=== PATIENT | female | born 1945 | race Caucasian/White ===

== ENCOUNTER 2019-02-14 17:32 | Inpatient (IN) | payer MEDICARE, OTHER ==
[2019-02-14] MEDS ORDERED: Adenosine 6 MG/2 ML SDV ONE (17:43)
[2019-02-14] MEDS ORDERED: Adenosine 12 MG/4 ML SDV ONE (17:43)
[2019-02-14] MEDS ORDERED: Sodium Chloride 0.9% 10 ML Syringe FLUSH PRN (17:48)
[2019-02-14] MEDS: Diltiazem 50 MG/10 ML SDV IVPUSH ONE ×2 (17:55→18:15)
[2019-02-14] MEDS ORDERED: Diltiazem 50 MG/10 ML SDV IVPUSH ONE (18:31)
--- NOTE | 2019-02-14 18:44 | EDM.PDOC ---
ED HPI GENERAL MEDICAL PROBLEM - General Chief Complaint: Cardiovascular Problem Stated Complaint: RACING HEART Time Seen by Provider: 02/14/19 17:42 Source of Information: Reports: Patient, RN Notes Reviewed - History of Present Illness INITIAL COMMENTS - FREE TEXT/NARRATIVE: 74 old lady comes in with palpitations, shortness of breath and dizziness. This all started about noon today, around 6 hours ago. She was feeling fine with no unusual symptoms this morning. She has no known history of heart or lung problems. She is on medication for hypertension, losartan, dosage unknown. Was on thyroid medication, dosage unknown, and also on fosomax. She continues to feel short of breath. Her chest does not feel heavy or tight. No abdominal pain nausea or vomiting. She has never had anything like this before. - Related Data Allergies Allergy/AdvReac Type Severity Reaction Status Date / Time penicillin Allergy Hives Verified 02/14/19 17:43 vancomycin Allergy Hives Verified 02/14/19 17:43 Past Medical History HEENT History: Reports: Other (See Below) Other HEENT History: [place], glasses Cardiovascular History: Reports: Hypertension Respiratory History: Reports: Asthma Gastrointestinal History: Reports: GERD Musculoskeletal History: Reports: Other (See Below) Other Musculoskeletal History: left ankle surgery Endocrine/Metabolic History: Reports: Hypothyroidism, Other (See Below) Other Endocrine/Metabolic History: borderline diabetic - Past Surgical History GI Surgical History: Reports: Appendectomy Social & Family History - Tobacco Use Smoking Status *Q: Never Smoker Second Hand Smoke Exposure: No - Caffeine Use Caffeine Use: Reports: Coffee - Recreational Drug Use Recreational Drug Use: No ED ROS GENERAL - Review of Systems Review Of Systems: See Below Constitutional: Denies: Fever, Chills, Diaphoresis HEENT: Reports: No Symptoms Respiratory: Reports: Shortness of Breath Cardiovascular: Denies: Chest Pain GI/Abdominal: Denies: Abdominal Pain, Nausea, Vomiting Musculoskeletal: Denies: Neck Pain, Shoulder Pain, Arm Pain, Back Pain Skin: Reports: No Symptoms Neurological: Reports: Dizziness (Mild) ED EXAM, GENERAL - Physical Exam Exam: See Below General Appearance: Alert, Mild Distress Eye Exam: Bilateral Eye: PERRL Throat/Mouth: Normal Inspection, Normal Oropharynx Head: Atraumatic. No: Facial Swelling Neck: Supple, Full Range of Motion Respiratory/Chest: No Respiratory Distress, Lungs Clear, Normal Breath Sounds Cardiovascular: Tachycardia, Irregularly Irregular GI/Abdominal: Soft, Non-Tender. No: Guarding Back Exam: No: CVA Tenderness (L), CVA Tenderness (R) Extremities: Normal Inspection, No Pedal Edema Neurological: Alert, Oriented, No Motor/Sensory Deficits Skin Exam: Warm, Dry, Normal Color EKG INTERPRETATION EKG Date: 02/14/19 Rhythm: A-Fib [place]: Normal QRS: Other (mild conduction delay) ST-T: Depressed (there is ST depressionV2-v6.) Course - Vital Signs Last Recorded V/S: Last Vital Signs Temp 96.8 F 02/14/19 17:40 Pulse 126 H 02/14/19 19:05 Resp 15 02/14/19 19:05 BP 134/118 H 02/14/19 19:05 Pulse Ox 98 02/14/19 19:05 - Orders/Labs/Meds Orders: Active Orders 24 hr Category Date Time Status EKG 12 Lead [EKG Documentation Completion] [RC] STAT Care 02/14/19 17:48 Active EKG Documentation Completion [RC] ASDIRECTED Care 02/14/19 19:45 Active Oxygen Therapy [RC] ASDIRECTED Care 02/14/19 17:48 Active Peripheral IV Care [RC] . DIRECTED Care 02/14/19 17:48 Active Chest 1V Frontal [CR] Stat Exams 02/14/19 17:48 Taken TSH [CHEM] Stat Lab 02/14/19 19:47 Ordered Diltiazem 125 mg Med 02/14/19 18:30 Active Sodium Chloride 0.9% [Normal Saline] 100 ml IV TITRATE Sodium Chloride 0.9% [Normal Saline] 1,000 ml Med 02/14/19 19:45 Active IV ASDIRECTED Sodium Chloride 0.9% [Saline Flush] Med 02/14/19 17:48 Active 10 ml FLUSH ASDIRECTED PRN Peripheral IV Insertion Adult [OM.PC] Stat Oth 02/14/19 17:48 Ordered EKG 12 Lead [EK] Stat Ther 02/14/19 19:44 Ordered Medication Orders Diltiazem HCl 125 mg/ Sodium (Chloride) 125 mls @ 5 mls/hr IV TITRATE SOPHY; Protocol Last Titration: 02/14/19 19:33 Dose: 10 mg/hr, 10 mls/hr Admin: 09/21/19 18:48 Dose: 5 mg/hr, 5 mls/hr Sodium Chloride (Normal Saline) 1,000 mls @ 150 mls/hr IV ASDIRECTED SOPHY Sodium Chloride (Saline Flush) 10 ml FLUSH ASDIRECTED PRN PRN Reason: Keep Vein Open Last Admin: 02/14/19 18:00 Dose: 10 ml Labs: Laboratory Tests 02/14/19 02/14/19 02/14/19 Range/Units 18:05 18:05 18:05 WBC 8.24 (3.98-10.04) K/mm3 RBC 4.87 (3.98-5.22) M/mm3 Hgb 14.5 (11.2-15.7) gm/dl Hct 42.8 (34.1-44.9) % MCV 87.9 (79.4-94.8) fl MCH 29.8 (25.6-32.2) pg MCHC 33.9 (32.2-35.5) g/dl RDW Std Deviation 42.2 (36.4-46.3) fL Plt Count 218 (182-369) K/mm3 MPV 10.8 (9.4-12.3) fl Neut % (Auto) 60.8 (34.0-71.1) % Lymph % (Auto) 25.2 (19.3-51.7) % [place] % (Auto) 9.8 (4.7-12.5) % Eos % (Auto) 3.5 (0.7-5.8) Baso % (Auto) 0.6 (0.1-1.2) % Neut # (Auto) 5.00 (1.56-6.13) K/mm3 Lymph # (Auto) 2.08 (1.18-3.74) K/mm3 [place] # (Auto) 0.81 H (0.24-0.36) K/mm3 Eos # (Auto) 0.29 (0.04-0.36) K/mm3 Baso # (Auto) 0.05 (0.01-0.08) K/mm3 PT 9.6 L (9.7-12.0) SECONDS INR < 0.93 Sodium 140 (136-145) mEq/L Potassium 3.5 (3.5-5.1) mEq/L Chloride 104 (98-107) mEq/L Carbon Dioxide 22 (21-32) mEq/L Anion Gap 17.5 H (5-15) BUN 10 (7-18) mg/dL Creatinine 0.7 (0.55-1.02) mg/dL Est Cr Clr Drug Dosing 50.65 mL/min Estimated GFR (MDRD) > 60 (>60) mL/min BUN/Creatinine Ratio 14.3 (14-18) Glucose 106 (83-115) mg/dL Calcium 9.7 (8.5-10.1) mg/dL Total Bilirubin 0.3 (0.2-1.0) mg/dL AST 30 (15-37) U/L ALT 41 (14-59) U/L Alkaline Phosphatase 235 H (46-116) U/L Troponin I < 0.017 (0.00-0.056) ng/mL NT-Pro-B Natriuret Pep (0-125) pg/mL Total Protein 7.9 (6.4-8.2) g/dl Albumin 3.7 (3.4-5.0) g/dl Globulin 4.2 gm/dL Albumin/Globulin Ratio 0.9 L (1-2) 02/14/19 Range/Units 18:05 WBC (3.98-10.04) K/mm3 RBC (3.98-5.22) M/mm3 Hgb (11.2-15.7) gm/dl Hct (34.1-44.9) % MCV (79.4-94.8) fl MCH (25.6-32.2) pg MCHC (32.2-35.5) g/dl RDW Std Deviation (36.4-46.3) fL Plt Count (182-369) K/mm3 MPV (9.4-12.3) fl Neut % (Auto) (34.0-71.1) % Lymph % (Auto) (19.3-51.7) % [place] % (Auto) (4.7-12.5) % Eos % (Auto) (0.7-5.8) Baso % (Auto) (0.1-1.2) % Neut # (Auto) (1.56-6.13) K/mm3 Lymph # (Auto) (1.18-3.74) K/mm3 [place] # (Auto) (0.24-0.36) K/mm3 Eos # (Auto) (0.04-0.36) K/mm3 Baso # (Auto) (0.01-0.08) K/mm3 PT (9.7-12.0) SECONDS INR Sodium (136-145) mEq/L Potassium (3.5-5.1) mEq/L Chloride (98-107) mEq/L Carbon Dioxide (21-32) mEq/L Anion Gap (5-15) BUN (7-18) mg/dL Creatinine (0.55-1.02) mg/dL Est Cr Clr Drug Dosing mL/min Estimated GFR (MDRD) (>60) mL/min BUN/Creatinine Ratio (14-18) Glucose (83-115) mg/dL Calcium (8.5-10.1) mg/dL Total Bilirubin (0.2-1.0) mg/dL AST (15-37) U/L ALT (14-59) U/L Alkaline Phosphatase (46-116) U/L Troponin I (0.00-0.056) ng/mL NT-Pro-B Natriuret Pep 247 H (0-125) pg/mL Total Protein (6.4-8.2) g/dl Albumin (3.4-5.0) g/dl Globulin gm/dL Albumin/Globulin Ratio (1-2) Meds: Medications Generic Name Dose Route Start Last Admin Trade Name Freq PRN Reason Stop Dose Admin Diltiazem HCl 125 mg/ Sodium 125 mls @ 5 mls/hr 02/14/19 18:30 02/14/19 19:33 Chloride IV 10 mg/hr TITRATE SOPHY 10 mls/hr Titration Protocol 5 MG/HR Sodium Chloride 1,000 mls @ 150 mls/hr 02/14/19 19:45 Normal Saline IV ASDIRECTED SOPHY Sodium Chloride 10 ml 02/14/19 17:48 02/14/19 18:00 Saline Flush FLUSH 10 ml ASDIRECTED PRN Administration Keep Vein Open Discontinued Medications Generic Name Dose Route Start Last Admin Trade Name Freq PRN Reason Stop Dose Admin Adenosine Confirm 02/14/19 17:43 02/14/19 17:59 Adenocard Administered 02/14/19 17:44 Not Given Dose 6 mg .ROUTE .STK-MED ONE Adenosine Confirm 02/14/19 17:43 02/14/19 17:59 Adenocard Administered 02/14/19 17:44 Not Given Dose 12 mg .ROUTE .STK-MED ONE Diltiazem HCl 20 mg 02/14/19 17:50 02/14/19 18:15 Cardizem IVPUSH 02/14/19 17:51 10 mg ONETIME ONE Administration Diltiazem HCl 10 mg 02/14/19 18:31 02/14/19 18:47 Cardizem IVPUSH 02/14/19 18:32 10 mg ONETIME ONE Administration Lactated Ringer's 1,000 mls @ 150 mls/hr 02/14/19 19:45 Ringers, Lactated IV ASDIRECTED SOPHY - Re-Assessments/Exams Free Text/Narrative Re-Assessment/Exam: 02/14/19 19:45 Patient was given diltiazem 10 mg IV bolus 3 and that did bring her rate down into the 130's and 140's. Diltiazem drip was started at 5 mg per hour. Her rate has been trending upward toward 150 diltiazam drip has been increased to 10 mg per hour. She does feel much better. She continues to have no chest pain. Troponin did come back normal. Abscess all relatively normal. Will be admitted to ICU for further evaluation treatment 02/14/19 19:47 TSH added to her lab work. Departure - Departure Time of Disposition: 19:40 Disposition: Admitted As Inpatient 66 Condition: Fair Clinical Impression: Atrial fibrillation with RVR Referrals: Kina Joshi, [employer] [Primary Care Provider] - Forms: ED Department Discharge ED Communication - Discussed Case With (1) Discussed Case With (1): Admitting Provider (Dr Crowe, decision to admit at about 19:40) - My Orders Last 24 Hours: My Active Orders 02/14/19 17:48 EKG 12 Lead [EKG Documentation Completion] [RC] STAT Oxygen Therapy [RC] ASDIRECTED Peripheral IV Care [RC] . DIRECTED Chest 1V Frontal [CR] Stat Sodium Chloride 0.9% [Saline Flush] 10 ml FLUSH ASDIRECTED PRN Peripheral IV Insertion Adult [OM.PC] Stat 02/14/19 18:30 Diltiazem 125 mg Sodium Chloride 0.9% [Normal Saline] 100 ml IV TITRATE 02/14/19 19:44 EKG 12 Lead [EK] Stat 02/14/19 19:45 EKG Documentation Completion [RC] ASDIRECTED Sodium Chloride 0.9% [Normal Saline] 1,000 ml IV ASDIRECTED 02/14/19 19:47 TSH [CHEM] Stat - Assessment/Plan Last 24 Hours: My Active Orders 02/14/19 17:48 EKG 12 Lead [EKG Documentation Completion] [RC] STAT Oxygen Therapy [RC] ASDIRECTED Peripheral IV Care [RC] . DIRECTED Chest 1V Frontal [CR] Stat Sodium Chloride 0.9% [Saline Flush] 10 ml FLUSH ASDIRECTED PRN Peripheral IV Insertion Adult [OM.PC] Stat 02/14/19 18:30 Diltiazem 125 mg Sodium Chloride 0.9% [Normal Saline] 100 ml IV TITRATE 02/14/19 19:44 EKG 12 Lead [EK] Stat 02/14/19 19:45 EKG Documentation Completion [RC] ASDIRECTED Sodium Chloride 0.9% [Normal Saline] 1,000 ml IV ASDIRECTED 02/14/19 19:47 TSH [CHEM] Stat
[2019-02-14] MEDS: Diltiazem 125 MG in Sodium Chloride 0.9% 100 ML IV SCH (18:48)
[2019-02-14] MEDS ORDERED: Lactated Ringers 1,000 ML IV SCH (19:45)
[2019-02-14] MEDS ORDERED: Promethazine 6.25 MG in Sodium Chloride 0.9% 50 ML IV PRN (20:42)
[2019-02-14] MEDS ORDERED: Ondansetron 4 MG/2 ML SDV IV PRN (20:42)
[2019-02-14] MEDS ORDERED: Polyethylene Glycol 3350 Powder 17 GM Packet PO PRN (20:42)
[2019-02-14] MEDS ORDERED: HYDROmorphone 0.5 MG/0.5 ML Syringe IVPUSH PRN (20:42)
[2019-02-14] MEDS ORDERED: Albuterol/Ipratropium 3.0-0.5 MG/3 ML Neb Soln NEB PRN (20:42)
[2019-02-14] MEDS ORDERED: Acetaminophen/HYDROcodone 325-5 MG Tab PO PRN (20:42)
[2019-02-14] MEDS ORDERED: Docusate Sodium 100 MG Cap PO PRN (20:42)
[2019-02-14] MEDS ORDERED: Bisacodyl 5 MG Tab PO PRN (20:42)
[2019-02-14] MEDS ORDERED: Acetaminophen 325 MG Tab PO PRN (20:42)
[2019-02-14] MEDS ORDERED: LORazepam 2 MG/ML SDV IV PRN (20:42)
[2019-02-14] MEDS ORDERED: hydrALAZINE 20 MG/ML SDV IVPUSH PRN (20:48)
[2019-02-14] MEDS: Sodium Chloride 0.9% 1,000 ML IV SCH (20:50)
--- NOTE | 2019-02-14 20:50 | PCM.HP.2 ---
H&P History of Present Illness - General Date of Service: 02/14/19 Admit Problem/Dx: Admission Diagnosis/Problem Admission Diagnosis/Problem Atrial fibrillation with rapid ventricular response Source of Information: Patient, Provider, RN Notes Reviewed History Limitations: Reports: No Limitations - History of Present Illness Initial Comments - Free Text/Narative: This is a 74 yo elderly white female with past medical hx/o Asthma, GERD, HTN, Hypothyroidism and Pre-Diabetes who comes in with complaints of heart palpitation associated with shortness of breath and dizziness that started about noon today. She denies any hx/o cardiac dysrhythmia. No previous hx/o it in the past. She is not any "uppers" except she drinks about 5 cups of regular coffee a day. She does not drink tea or soda. However she carries a hx/o hypothyroidism. Her initial work up in ED is fairly unremarkable. Her EKG shows SVT with HR of 130. She received a bolus of Cardizem IVP and currently on Cardizem drip with HR still in the 140s-150s. She is primarily coming in for treatment of SVT. Generalized Pain Score (Numeric/FACES): 0 - Related Data Allergies/Adverse Reactions: Allergies Allergy/AdvReac Type Severity Reaction Status Date / Time penicillin Allergy Hives Verified 02/14/19 17:43 vancomycin Allergy Hives Verified 02/14/19 17:43 Home Medications: Home Meds Fosamax. 02/15/19 [History] Levothyroxine [Synthroid] 25 mcg PO DAILY 02/15/19 [History] Losartan Potassium 50 mg PO DAILY 02/15/19 [History] Past Medical History HEENT History: Reports: Other (See Below) Other HEENT History: [place], glasses Cardiovascular History: Reports: Hypertension Respiratory History: Reports: Asthma Gastrointestinal History: Reports: GERD Musculoskeletal History: Reports: Other (See Below) Other Musculoskeletal History: left ankle surgery Endocrine/Metabolic History: Reports: Hypothyroidism, Other (See Below) Other Endocrine/Metabolic History: borderline diabetic - Past Surgical History GI Surgical History: Reports: Appendectomy Social & Family History - Tobacco Use Smoking Status *Q: Never Smoker Second Hand Smoke Exposure: No - Caffeine Use Caffeine Use: Reports: Coffee - Recreational Drug Use Recreational Drug Use: No H&P Review of Systems - Review of Systems: Review Of Systems: See Below General: Denies: Fever, Chills, Malaise, Weakness, Fatigue HEENT: Reports: No Symptoms Pulmonary: Reports: Shortness of Breath Cardiovascular: Reports: Palpitations, Dyspnea on Exertion. Denies: Chest Pain , Orthopnea, Lightheadedness, Syncope, Claudication Gastrointestinal: Denies: Abdominal Pain, Nausea Genitourinary: Reports: No Symptoms Musculoskeletal: Reports: No Symptoms Psychiatric: Denies: Depression, Anxiety, Agitation, Cravings, Hallucinations, Suicidal Ideation, Homicidal Ideation, Hallucinations (Auditory) Neurological: Denies: Confusion, Difficulty Walking, Weakness Hematologic/Lymphatic: Denies: Anemia, Easy Bleeding, Easy Bruising Immunologic: Reports: No Symptoms Exam - Exam Exam: See Below - Vital Signs Vital Signs: Last Vital Signs Temp 36.0 C 02/14/19 17:40 Pulse 126 H 02/14/19 19:05 Resp 15 02/14/19 19:05 BP 134/118 H 02/14/19 19:05 Pulse Ox 98 02/14/19 19:05 Weight: 48.081 kg - Exam General: Alert, Oriented, Cooperative. No: Mild Distress HEENT: Conjunctiva Clear, EACs Clear, EOMI, Hearing Intact, Mucosa Moist & [place] , Nares Patent, Normal Nasal Septum, Posterior Pharynx Clear, Pupils Equal, Pupils Reactive Neck: Supple, Trachea Midline, Full Range of Motion. No: JVD, Thyromegaly Lungs: Clear to Auscultation, Normal Respiratory Effort Cardiovascular: Irregular Rhythm, Other (Irregular) GI/Abdominal Exam: Normal Bowel Sounds, Soft, Non-Tender, No Organomegaly, No Distention, No Abnormal Bruit, No Mass (Female) Exam: Deferred Rectal (Female) Exam: Deferred Back Exam: Normal Inspection, Full Range of Motion Extremities: Normal Inspection, Normal Range of Motion, Non-Tender, No Pedal Edema, Normal Capillary Refill Peripheral Pulses: 2+: Posterior Tibial (L), Posterior Tibial (R), Dorsalis Pedis (L), Dorsalis Pedis (R) Skin: Warm, Dry, Intact Neuro Extensive - Mental Status: Oriented x3, Normal Cognition, Memory Intact Neuro Extensive - Motor, Sensory, Reflexes: CN II-XII Intact, Normal Gait Psychiatric: Alert, Normal Affect, Normal Mood - Patient Data Lab Results Last 24 hrs: Laboratory Results - last 24 hr 0902/14/19 02/14/19 Range/Units 18:05 18:05 18:05 WBC 8.24 (3.98-10.04) K/mm3 RBC 4.87 (3.98-5.22) M/mm3 Hgb 14.5 (11.2-15.7) gm/dl Hct 42.8 (34.1-44.9) % MCV 87.9 (79.4-94.8) fl MCH 29.8 (25.6-32.2) pg MCHC 33.9 (32.2-35.5) g/dl RDW Std Deviation 42.2 (36.4-46.3) fL Plt Count 218 (182-369) K/mm3 MPV 10.8 (9.4-12.3) fl Neut % (Auto) 60.8 (34.0-71.1) % Lymph % (Auto) 25.2 (19.3-51.7) % [place] % (Auto) 9.8 (4.7-12.5) % Eos % (Auto) 3.5 (0.7-5.8) Baso % (Auto) 0.6 (0.1-1.2) % Neut # (Auto) 5.00 (1.56-6.13) K/mm3 Lymph # (Auto) 2.08 (1.18-3.74) K/mm3 [place] # (Auto) 0.81 H (0.24-0.36) K/mm3 Eos # (Auto) 0.29 (0.04-0.36) K/mm3 Baso # (Auto) 0.05 (0.01-0.08) K/mm3 PT 9.6 L (9.7-12.0) SECONDS INR < 0.93 Sodium 140 (136-145) mEq/L Potassium 3.5 (3.5-5.1) mEq/L Chloride 104 (98-107) mEq/L Carbon Dioxide 22 (21-32) mEq/L Anion Gap 17.5 H (5-15) BUN 10 (7-18) mg/dL Creatinine 0.7 (0.55-1.02) mg/dL Est Cr Clr Drug Dosing 50.65 mL/min Estimated GFR (MDRD) > 60 (>60) mL/min BUN/Creatinine Ratio 14.3 (14-18) Glucose 106 (83-115) mg/dL Calcium 9.7 (8.5-10.1) mg/dL Total Bilirubin 0.3 (0.2-1.0) mg/dL AST 30 (15-37) U/L ALT 41 (14-59) U/L Alkaline Phosphatase 235 H (46-116) U/L Troponin I < 0.017 (0.00-0.056) ng/mL NT-Pro-B Natriuret Pep (0-125) pg/mL Total Protein 7.9 (6.4-8.2) g/dl Albumin 3.7 (3.4-5.0) g/dl Globulin 4.2 gm/dL Albumin/Globulin Ratio 0.9 L (1-2) TSH 3rd Generation (0.358-3.74) uIU/mL 02/14/19 02/14/19 Range/Units 18:05 18:05 WBC (3.98-10.04) K/mm3 RBC (3.98-5.22) M/mm3 Hgb (11.2-15.7) gm/dl Hct (34.1-44.9) % MCV (79.4-94.8) fl MCH (25.6-32.2) pg MCHC (32.2-35.5) g/dl RDW Std Deviation (36.4-46.3) fL Plt Count (182-369) K/mm3 MPV (9.4-12.3) fl Neut % (Auto) (34.0-71.1) % Lymph % (Auto) (19.3-51.7) % [place] % (Auto) (4.7-12.5) % Eos % (Auto) (0.7-5.8) Baso % (Auto) (0.1-1.2) % Neut # (Auto) (1.56-6.13) K/mm3 Lymph # (Auto) (1.18-3.74) K/mm3 [place] # (Auto) (0.24-0.36) K/mm3 Eos # (Auto) (0.04-0.36) K/mm3 Baso # (Auto) (0.01-0.08) K/mm3 PT (9.7-12.0) SECONDS INR Sodium (136-145) mEq/L Potassium (3.5-5.1) mEq/L Chloride (98-107) mEq/L Carbon Dioxide (21-32) mEq/L Anion Gap (5-15) BUN (7-18) mg/dL Creatinine (0.55-1.02) mg/dL Est Cr Clr Drug Dosing mL/min Estimated GFR (MDRD) (>60) mL/min BUN/Creatinine Ratio (14-18) Glucose (83-115) mg/dL Calcium (8.5-10.1) mg/dL Total Bilirubin (0.2-1.0) mg/dL AST (15-37) U/L ALT (14-59) U/L Alkaline Phosphatase (46-116) U/L Troponin I (0.00-0.056) ng/mL NT-Pro-B Natriuret Pep 247 H (0-125) pg/mL Total Protein (6.4-8.2) g/dl Albumin (3.4-5.0) g/dl Globulin gm/dL Albumin/Globulin Ratio (1-2) TSH 3rd Generation 4.502 H (0.358-3.74) uIU/mL Result Diagrams: 02/15/19 04:27 02/15/19 04:27 EKG INTERPRETATION EKG Date: 02/14/19 Time: 07:49 Rhythm: Other (SVT) Rate (Beats/Min): 155 Problem List Initiated/Reviewed/Updated: Yes Orders Last 24hrs: Active Orders 24 hr Category Date Time Status Patient Status [ADT] Routine ADT 02/14/19 20:15 Active Cardiac Monitoring [RC] CONTINUOUS Care 02/14/19 20:43 Ordered EKG 12 Lead [EKG Documentation Completion] [RC] STAT Care 02/14/19 17:48 Active EKG Documentation Completion [RC] ASDIRECTED Care 02/14/19 19:45 Active Height and Weight [RC] DAILY Care 02/14/19 20:42 Ordered Intake and Output [RC] QSHIFT Care 02/14/19 20:43 Ordered Oxygen Therapy [RC] ASDIRECTED Care 02/14/19 17:48 Active Oxygen Therapy [RC] PRN Care 02/14/19 20:42 Ordered Peripheral IV Care [RC] . DIRECTED Care 02/14/19 17:48 Active RT Aerosol Therapy [RC] ASDIRECTED Care 02/14/19 20:44 Ordered Up With Assistance [RC] ASDIRECTED Care 02/14/19 20:42 Ordered Up ad Ayla [RC] ASDIRECTED Care 02/14/19 20:42 Ordered VTE/DVT Education [RC] PER UNIT ROUTINE Care 02/14/19 20:42 Ordered Vital Signs [RC] Q4H Care 02/14/19 20:42 Ordered Consult to Case Management/Alodize Machine Operator [CONS] Cons 02/14/19 20:42 Ordered Routine OT Evaluation and Treatment [CONS] Routine Cons 02/14/19 20:42 Ordered PT Evaluation and Treatment [CONS] Routine Cons 02/14/19 20:42 Ordered 2 Gram Sodium Diet [DIET] Diet 02/14/19 Dinner Ordered Chest 1V Frontal [CR] Stat Exams 02/14/19 17:48 Taken Echo Comp wo Cont [US] Routine Exams 02/14/19 20:47 Ordered BASIC METABOLIC PANEL,BMP [CHEM] AM Lab 02/15/19 05:11 Ordered BASIC METABOLIC PANEL,BMP [CHEM] AM Lab 02/16/19 05:11 Ordered BASIC METABOLIC PANEL,BMP [CHEM] AM Lab 02/17/19 05:11 Ordered BASIC METABOLIC PANEL,BMP [CHEM] AM Lab 02/18/19 05:11 Ordered CBC WITH AUTO DIFF [HEME] AM Lab 02/15/19 05:11 Ordered CBC WITH AUTO DIFF [HEME] AM Lab 02/16/19 05:11 Ordered CBC WITH AUTO DIFF [HEME] AM Lab 02/17/19 05:11 Ordered CBC WITH AUTO DIFF [HEME] AM Lab 02/18/19 05:11 Ordered CKMB [CHEM] AM Lab 02/15/19 05:11 Ordered CKMB [CHEM] Q6H Lab 02/14/19 21:00 Ordered MAGNESIUM [CHEM] AM Lab 02/15/19 05:11 Ordered MAGNESIUM [CHEM] AM Lab 02/16/19 05:11 Ordered MAGNESIUM [CHEM] AM Lab 02/17/19 05:11 Ordered MAGNESIUM [CHEM] AM Lab 02/18/19 05:11 Ordered T4 FREE [CHEM] Routine Lab 02/14/19 20:47 Ordered TROPONIN I [CHEM] AM Lab 02/15/19 05:11 Ordered TROPONIN I [CHEM] Routine Lab 02/14/19 20:42 Ordered Acetaminophen [Tylenol] Med 02/14/19 20:42 Ordered 650 mg PO Q4H PRN Acetaminophen/HYDROcodone [[place] 325-5 MG] Med 02/14/19 20:42 Ordered 1 tab PO Q4H PRN Albuterol/Ipratropium [DuoNeb 3.0-0.5 MG/3 ML] Med 02/14/19 20:42 Ordered 3 ml NEB Q4H PRN Apixaban [Eliquis] Med 02/14/19 21:00 Ordered 5 mg PO BID Bisacodyl [Dulcolax] Med 02/14/19 20:42 Ordered 5 mg PO DAILY PRN Diltiazem 125 mg Med 02/14/19 18:30 Active Sodium Chloride 0.9% [Normal Saline] 100 ml IV TITRATE Docusate Sodium [Colace] Med 02/14/19 20:42 Ordered 100 mg PO BID PRN Docusate Sodium/Sennosides [Senna Plus] Med 02/14/19 20:42 Ordered 1 tab PO BID PRN HYDROmorphone [Dilaudid] Med 02/14/19 20:42 Ordered 0.25 mg IVPUSH Q2H PRN LORazepam [Ativan] Med 02/14/19 20:42 Ordered 0.5 mg IV Q6H PRN Metoprolol Tartrate [Lopressor] Med 02/14/19 21:00 Ordered 25 mg PO Q12H Metoprolol Tartrate [Lopressor] Med 02/14/19 20:48 Ordered 5 mg IVPUSH Q4H PRN Ondansetron [Zofran] Med 02/14/19 20:42 Ordered 4 mg IV Q6H PRN Polyethylene Glycol 3350 [MiraLAX] Med 02/14/19 20:42 Ordered 17 gm PO DAILY PRN Promethazine [Phenergan] 6.25 mg Med 02/14/19 20:42 Ordered Sodium Chloride 0.9% [Normal Saline] 50 ml IV Q6H Sodium Chloride 0.9% [Normal Saline] 1,000 ml Med 02/14/19 19:45 Active IV ASDIRECTED Sodium Chloride 0.9% [Saline Flush] Med 02/14/19 17:48 Active 10 ml FLUSH ASDIRECTED PRN Temazepam [Restoril] Med 02/14/19 20:42 Ordered 7.5 mg PO BEDTIME PRN hydrALAZINE [Apresoline] Med 02/14/19 20:48 Ordered 20 mg IVPUSH Q4H PRN Peripheral IV Insertion Adult [OM.PC] Stat Oth 02/14/19 17:48 Ordered Resuscitation Status Routine Resus Stat 02/14/19 20:42 Ordered EKG 12 Lead [EK] Stat Ther 02/14/19 19:44 Ordered Medication Orders Acetaminophen (Tylenol) 650 mg PO Q4H PRN PRN Reason: Pain (Mild 1-3)/fever Hydrocodone Bitart/Acetaminophen ([place] 325-5 Mg) 1 tab PO Q4H PRN PRN Reason: Pain (moderate 4-6) Albuterol/Ipratropium (Duoneb 3.0-0.5 Mg/3 Ml) 3 ml NEB Q4H PRN PRN Reason: Shortness Of Breath/wheezing Apixaban (Eliquis) 5 mg PO BID SOPHY Bisacodyl (Dulcolax) 5 mg PO DAILY PRN PRN Reason: Constipation Docusate Sodium (Colace) 100 mg PO BID PRN PRN Reason: Constipation Hydralazine HCl (Apresoline) 20 mg IVPUSH Q4H PRN PRN Reason: Hypertension Hydromorphone HCl (Dilaudid) 0.25 mg IVPUSH Q2H PRN PRN Reason: Pain (severe 7-10) Diltiazem HCl 125 mg/ Sodium (Chloride) 125 mls @ 5 mls/hr IV TITRATE SOPHY; Protocol Last Titration: 02/14/19 19:33 Dose: 10 mg/hr, 10 mls/hr Admin: 02/14/19 18:48 Dose: 5 mg/hr, 5 mls/hr Sodium Chloride (Normal Saline) 1,000 mls @ 150 mls/hr IV ASDIRECTED SOPHY Promethazine HCl 6.25 mg/ (Sodium Chloride) 50.25 mls @ 100 mls/hr IV Q6H PRN PRN Reason: Nausea/Vomiting Lorazepam (Ativan) 0.5 mg IV Q6H PRN PRN Reason: Anxiety Metoprolol Tartrate (Lopressor) 5 mg IVPUSH Q4H PRN PRN Reason: Tachycardia Ondansetron HCl (Zofran) 4 mg IV Q6H PRN PRN Reason: Nausea/Vomiting Polyethylene Glycol (Miralax) 17 gm PO DAILY PRN PRN Reason: Constipation Senna/Docusate Sodium (Senna Plus) 1 tab PO BID PRN PRN Reason: Constipation Sodium Chloride (Saline Flush) 10 ml FLUSH ASDIRECTED PRN PRN Reason: Keep Vein Open Last Admin: 02/14/19 18:00 Dose: 10 ml Temazepam (Restoril) 7.5 mg PO BEDTIME PRN PRN Reason: Sleep Assessment/Plan Comment:: Assessment: Acute: SVT - 2/2 Stimulant - She drinks about 5 cups of regular coffee a day - No tea or 5 hrs energy - She does not drink pop/soda - Has hypothyroidism but TSH is 4.5502 - Heart Palpitation, SOB/Dyspnea and Dizziness - EKG shows SVT with HR of 155 - No vaso-vagal or a trial Adenosine administered in ED - Received Cardizem bolus and was put on Cardizem drip but HR remains in the 140s-150s - Need Beta blockade PRN IVP and Metoprolol 25 mg po BID - Consider Eliquis 5 mg po BID for stroke/dvt prophylaxis Chronic: Asthma, GERD, HTN, Hypothyroidism and Pre-Diabetes Plan: Admit to ICU Routine AM Labs Resume Home Meds Avoid Caffeinated Products PT/OT to assess and treat 2D echo in AM SW/CM for d/c planning Code status: full Additional orders as above - Mortality Measure Prognosis:: Good
[2019-02-14] MEDS: Metoprolol Tartrate 5 MG/5 ML SDV IVPUSH PRN (20:58)
[2019-02-14] MEDS: Apixaban 5 MG Tab PO SCH (21:14)
[2019-02-14] MEDS: Metoprolol Tartrate 25 MG Tab PO SCH (21:14)
[2019-02-14] MEDS: Temazepam 7.5 MG Cap PO PRN (21:47)
[2019-02-15] MEDS: Sodium Chloride 0.9% 1,000 ML IV SCH ×2 (03:05→17:27)
[2019-02-15] MEDS: Metoprolol Tartrate 5 MG/5 ML SDV IVPUSH PRN ×2 (03:24→10:24)
[2019-02-15] MEDS ORDERED: Magnesium Sulfate/Water 2 GM in Premix Bag 1 BAG IV ONE (07:16)
--- NOTE | 2019-02-15 07:17 | PCM.PN ---
- General Info Date of Service: 02/15/19 Admission Dx/Problem (Free Text): Admission Diagnosis/Problem Admission Diagnosis/Problem Atrial fibrillation with rapid ventricular response Subjective Update: Follow up Functional Status: Reports: Pain Controlled, Tolerating Diet, Ambulating, Urinating. Denies: New Symptoms - Review of Systems General: Denies: Fever, Weakness, Fatigue, Malaise, Chills HEENT: Denies: No Symptoms Pulmonary: Denies: Shortness of Breath Cardiovascular: Denies: Chest Pain, Palpitations, Dyspnea on Exertion, Edema, Lightheadedness Gastrointestinal: Denies: Abdominal Pain, Nausea, Vomiting Genitourinary: Reports: No Symptoms Musculoskeletal: Reports: No Symptoms Skin: Reports: No Symptoms Neurological: Denies: Confusion, Difficulty Walking, Weakness, Gait Disturbance Psychiatric: Denies: Depression, Mood Lability, Anxiety, Agitation, Cravings, Hallucinations Systems Review Comment:: No overnight or acute issues. She rested well and no complaints of shortness of breath, palpitations or dizziness. - Patient Data Vitals - Most Recent: Last Vital Signs Temp 36.3 C 02/15/19 07:00 Pulse 100 02/15/19 07:00 Resp 16 02/15/19 07:00 BP 100/61 02/15/19 07:00 Pulse Ox 94 L 02/15/19 07:00 Weight - Most Recent: 48.18 kg I&O - Last 24 Hours: Intake & Output 02/14/19 02/15/19 02/15/19 22:59 06:59 14:59 Intake Total 1253 Output Total 300 200 Balance 953 -200 Lab Results Last 24 Hours: Laboratory Results - last 24 hr 02/14/19 02/14/19 02/14/19 Range/Units 18:05 18:05 18:05 WBC 8.24 (3.98-10.04) K/mm3 RBC 4.87 (3.98-5.22) M/mm3 Hgb 14.5 (11.2-15.7) gm/dl Hct 42.8 (34.1-44.9) % MCV 87.9 (79.4-94.8) fl MCH 29.8 (25.6-32.2) pg MCHC 33.9 (32.2-35.5) g/dl RDW Std Deviation 42.2 (36.4-46.3) fL Plt Count 218 (182-369) K/mm3 MPV 10.8 (9.4-12.3) fl Neut % (Auto) 60.8 (34.0-71.1) % Lymph % (Auto) 25.2 (19.3-51.7) % [place] % (Auto) 9.8 (4.7-12.5) % Eos % (Auto) 3.5 (0.7-5.8) Baso % (Auto) 0.6 (0.1-1.2) % Neut # (Auto) 5.00 (1.56-6.13) K/mm3 Lymph # (Auto) 2.08 (1.18-3.74) K/mm3 [place] # (Auto) 0.81 H (0.24-0.36) K/mm3 Eos # (Auto) 0.29 (0.04-0.36) K/mm3 Baso # (Auto) 0.05 (0.01-0.08) K/mm3 PT 9.6 L (9.7-12.0) SECONDS INR < 0.93 Sodium 140 (136-145) mEq/L Potassium 3.5 (3.5-5.1) mEq/L Chloride 104 (98-107) mEq/L Carbon Dioxide 22 (21-32) mEq/L Anion Gap 17.5 H (5-15) BUN 10 (7-18) mg/dL Creatinine 0.7 (0.55-1.02) mg/dL Est Cr Clr Drug Dosing 50.65 mL/min Estimated GFR (MDRD) > 60 (>60) mL/min BUN/Creatinine Ratio 14.3 (14-18) Glucose 106 (83-115) mg/dL Calcium 9.7 (8.5-10.1) mg/dL Magnesium (1.8-2.4) mg/dl Total Bilirubin 0.3 (0.2-1.0) mg/dL AST 30 (15-37) U/L ALT 41 (14-59) U/L Alkaline Phosphatase 235 H (46-116) U/L CK-MB (CK-2) (0-3.6) ng/ml Troponin I < 0.017 (0.00-0.056) ng/mL NT-Pro-B Natriuret Pep (0-125) pg/mL Total Protein 7.9 (6.4-8.2) g/dl Albumin 3.7 (3.4-5.0) g/dl Globulin 4.2 gm/dL Albumin/Globulin Ratio 0.9 L (1-2) Free T4 (0.76-1.46) ng/dL TSH 3rd Generation (0.358-3.74) uIU/mL 02/14/19 02/14/19 02/14/19 Range/Units 18:05 18:05 21:10 WBC (3.98-10.04) K/mm3 RBC (3.98-5.22) M/mm3 Hgb (11.2-15.7) gm/dl Hct (34.1-44.9) % MCV (79.4-94.8) fl MCH (25.6-32.2) pg MCHC (32.2-35.5) g/dl RDW Std Deviation (36.4-46.3) fL Plt Count (182-369) K/mm3 MPV (9.4-12.3) fl Neut % (Auto) (34.0-71.1) % Lymph % (Auto) (19.3-51.7) % [place] % (Auto) (4.7-12.5) % Eos % (Auto) (0.7-5.8) Baso % (Auto) (0.1-1.2) % Neut # (Auto) (1.56-6.13) K/mm3 Lymph # (Auto) (1.18-3.74) K/mm3 [place] # (Auto) (0.24-0.36) K/mm3 Eos # (Auto) (0.04-0.36) K/mm3 Baso # (Auto) (0.01-0.08) K/mm3 PT (9.7-12.0) SECONDS INR Sodium (136-145) mEq/L Potassium (3.5-5.1) mEq/L Chloride (98-107) mEq/L Carbon Dioxide (21-32) mEq/L Anion Gap (5-15) BUN (7-18) mg/dL Creatinine (0.55-1.02) mg/dL Est Cr Clr Drug Dosing mL/min Estimated GFR (MDRD) (>60) mL/min BUN/Creatinine Ratio (14-18) Glucose (83-115) mg/dL Calcium (8.5-10.1) mg/dL Magnesium (1.8-2.4) mg/dl Total Bilirubin (0.2-1.0) mg/dL AST (15-37) U/L ALT (14-59) U/L Alkaline Phosphatase (46-116) U/L CK-MB (CK-2) (0-3.6) ng/ml Troponin I < 0.017 (0.00-0.056) ng/mL NT-Pro-B Natriuret Pep 247 H (0-125) pg/mL Total Protein (6.4-8.2) g/dl Albumin (3.4-5.0) g/dl Globulin gm/dL Albumin/Globulin Ratio (1-2) Free T4 1.24 (0.76-1.46) ng/dL TSH 3rd Generation 4.502 H (0.358-3.74) uIU/mL 02/14/19 02/15/19 02/15/19 Range/Units 21:10 04:27 04:27 WBC 9.21 (3.98-10.04) K/mm3 RBC 4.27 (3.98-5.22) M/mm3 Hgb 12.8 D (11.2-15.7) gm/dl Hct 38.8 (34.1-44.9) % MCV 90.9 D (79.4-94.8) fl MCH 30.0 (25.6-32.2) pg MCHC 33.0 (32.2-35.5) g/dl RDW Std Deviation 43.4 (36.4-46.3) fL Plt Count 208 (182-369) K/mm3 MPV 11.3 (9.4-12.3) fl Neut % (Auto) 65.1 (34.0-71.1) % Lymph % (Auto) 23.2 (19.3-51.7) % [place] % (Auto) 6.8 (4.7-12.5) % Eos % (Auto) 4.2 (0.7-5.8) Baso % (Auto) 0.5 (0.1-1.2) % Neut # (Auto) 5.98 (1.56-6.13) K/mm3 Lymph # (Auto) 2.14 (1.18-3.74) K/mm3 [place] # (Auto) 0.63 H (0.24-0.36) K/mm3 Eos # (Auto) 0.39 H (0.04-0.36) K/mm3 Baso # (Auto) 0.05 (0.01-0.08) K/mm3 PT (9.7-12.0) SECONDS INR Sodium 141 (136-145) mEq/L Potassium 4.2 (3.5-5.1) mEq/L Chloride 107 (98-107) mEq/L Carbon Dioxide 24 (21-32) mEq/L Anion Gap 14.2 (5-15) BUN 12 (7-18) mg/dL Creatinine 0.7 (0.55-1.02) mg/dL Est Cr Clr Drug Dosing 50.65 mL/min Estimated GFR (MDRD) > 60 (>60) mL/min BUN/Creatinine Ratio 17.1 (14-18) Glucose 130 H (83-115) mg/dL Calcium 8.3 L (8.5-10.1) mg/dL Magnesium 1.7 L (1.8-2.4) mg/dl Total Bilirubin (0.2-1.0) mg/dL AST (15-37) U/L ALT (14-59) U/L Alkaline Phosphatase (46-116) U/L CK-MB (CK-2) 0.7 0.9 (0-3.6) ng/ml Troponin I < 0.017 (0.00-0.056) ng/mL NT-Pro-B Natriuret Pep (0-125) pg/mL Total Protein (6.4-8.2) g/dl Albumin (3.4-5.0) g/dl Globulin gm/dL Albumin/Globulin Ratio (1-2) Free T4 (0.76-1.46) ng/dL TSH 3rd Generation (0.358-3.74) uIU/mL Med Orders - Current: Current Medications Acetaminophen (Tylenol) 650 mg PO Q4H PRN PRN Reason: Pain (Mild 1-3)/fever Hydrocodone Bitart/Acetaminophen ([place] 325-5 Mg) 1 tab PO Q4H PRN PRN Reason: Pain (moderate 4-6) Albuterol/Ipratropium (Duoneb 3.0-0.5 Mg/3 Ml) 3 ml NEB Q4H PRN PRN Reason: Shortness Of Breath/wheezing Apixaban (Eliquis) 5 mg PO BID [facility] Last Admin: 02/14/19 21:14 Dose: 5 mg Bisacodyl (Dulcolax) 5 mg PO DAILY PRN PRN Reason: Constipation Docusate Sodium (Colace) 100 mg PO BID PRN PRN Reason: Constipation Hydralazine HCl (Apresoline) 20 mg IVPUSH Q4H PRN PRN Reason: Hypertension Hydromorphone HCl (Dilaudid) 0.25 mg IVPUSH Q2H PRN PRN Reason: Pain (severe 7-10) Diltiazem HCl 125 mg/ Sodium (Chloride) 125 mls @ 5 mls/hr IV TITRATE [facility]; Protocol Last Titration: 02/15/19 05:12 Dose: 10 mg/hr, 10 mls/hr Sodium Chloride (Normal Saline) 1,000 mls @ 150 mls/hr IV ASDIRECTED [facility] Last Admin: 02/15/19 03:05 Dose: 150 mls/hr Promethazine HCl 6.25 mg/ (Sodium Chloride) 50.25 mls @ 100 mls/hr IV Q6H PRN PRN Reason: Nausea/Vomiting Lorazepam (Ativan) 0.5 mg IV Q6H PRN PRN Reason: Anxiety Metoprolol Tartrate (Lopressor) 5 mg IVPUSH Q4H PRN PRN Reason: Tachycardia Last Admin: 02/15/19 03:24 Dose: 5 mg Metoprolol Tartrate (Lopressor) 25 mg PO Q12H [facility] Last Admin: 02/14/19 21:14 Dose: 25 mg Ondansetron HCl (Zofran) 4 mg IV Q6H PRN PRN Reason: Nausea/Vomiting Polyethylene Glycol (Miralax) 17 gm PO DAILY PRN PRN Reason: Constipation Senna/Docusate Sodium (Senna Plus) 1 tab PO BID PRN PRN Reason: Constipation Sodium Chloride (Saline Flush) 10 ml FLUSH ASDIRECTED PRN PRN Reason: Keep Vein Open Last Admin: 02/14/19 18:00 Dose: 10 ml Temazepam (Restoril) 7.5 mg PO BEDTIME PRN PRN Reason: Sleep Last Admin: 02/14/19 21:47 Dose: 7.5 mg Discontinued Medications Adenosine (Adenocard) Confirm Administered Dose 6 mg .ROUTE .STK-MED ONE Stop: 02/14/19 17:44 Last Admin: 02/14/19 17:59 Dose: Not Given Adenosine (Adenocard) Confirm Administered Dose 12 mg .ROUTE .STK-MED ONE Stop: 02/14/19 17:44 Last Admin: 02/14/19 17:59 Dose: Not Given Diltiazem HCl (Cardizem) 20 mg IVPUSH ONETIME ONE Stop: 02/14/19 17:51 Last Admin: 02/14/19 18:15 Dose: 10 mg Diltiazem HCl (Cardizem) 10 mg IVPUSH ONETIME ONE Stop: 02/14/19 18:32 Last Admin: 02/14/19 18:47 Dose: 10 mg Lactated Ringer's (Ringers, Lactated) 1,000 mls @ 150 mls/hr IV ASDIRECTED SOPHY - Exam General: Alert, Oriented, Cooperative, No Acute Distress HEENT: Pupils Equal, Pupils Reactive, EOMI, Mucous Membr. Moist/[place] Neck: Supple Lungs: Clear to Auscultation, Normal Respiratory Effort Cardiovascular: Irregular Rhythm GI/Abdominal Exam: Normal Bowel Sounds, Soft, No Organomegaly, No Distention, No Abnormal Bruit (Female) Exam: Deferred Back Exam: Normal Inspection, Decreased Range of Motion Extremities: Normal Inspection, Normal Range of Motion, Non-Tender, No Pedal Edema, Normal Capillary Refill Peripheral Pulses: 2+: Dorsalis Pedis (L), Dorsalis Pedis (R) Skin: Warm, Dry, Intact Neurological: No New Focal Deficit Psy/Mental Status: Alert, Normal Affect, Normal Mood EKG INTERPRETATION EKG Date: 02/15/19 Time: 09:06 Rhythm: Other (Sinus rhythm) Rate (Beats/Min): 95 EKG Interpretation Comments: low voltage with Mobitz I - Problem List Review Problem List Initiated/Reviewed/Updated: Yes - My Orders Last 24 Hours: My Active Orders 02/14/19 20:42 Height and Weight [RC] 04 Up ad Ayla [RC] ASDIRECTED VTE/DVT Education [RC] PER UNIT ROUTINE Vital Signs [RC] Q4H Consult to Case Management/Observation Assistant [CONS] Routine OT Evaluation and Treatment [CONS] Routine PT Evaluation and Treatment [CONS] Routine Acetaminophen [Tylenol] 650 mg PO Q4H PRN Acetaminophen/HYDROcodone [[place] 325-5 MG] 1 tab PO Q4H PRN Albuterol/Ipratropium [DuoNeb 3.0-0.5 MG/3 ML] 3 ml NEB Q4H PRN Bisacodyl [Dulcolax] 5 mg PO DAILY PRN Docusate Sodium [Colace] 100 mg PO BID PRN Docusate Sodium/Sennosides [Senna Plus] 1 tab PO BID PRN HYDROmorphone [Dilaudid] 0.25 mg IVPUSH Q2H PRN LORazepam [Ativan] 0.5 mg IV Q6H PRN Ondansetron [Zofran] 4 mg IV Q6H PRN Polyethylene Glycol 3350 [MiraLAX] 17 gm PO DAILY PRN Promethazine [Phenergan] 6.25 mg Sodium Chloride 0.9% [Normal Saline] 50 ml IV Q6H Temazepam [Restoril] 7.5 mg PO BEDTIME PRN Resuscitation Status Routine 02/14/19 20:43 Intake and Output [RC] Q4HR 02/14/19 20:44 RT Aerosol Therapy [RC] ASDIRECTED 02/14/19 20:47 Echo Comp wo Cont [US] Routine 02/14/19 20:48 Metoprolol Tartrate [Lopressor] 5 mg IVPUSH Q4H PRN hydrALAZINE [Apresoline] 20 mg IVPUSH Q4H PRN 02/14/19 21:00 Apixaban [Eliquis] 5 mg PO BID Metoprolol Tartrate [Lopressor] 25 mg PO Q12H 02/15/19 07:16 Magnesium Sulfate/Water [Magnesium Sulfate in Water Premix] 2 gm Premix Bag 1 bag IV ONETIME 02/15/19 Breakfast 2 Gram Sodium Diet [DIET] 2 Gram Sodium Diet [DIET] 02/16/19 05:11 BASIC METABOLIC PANEL,BMP [CHEM] AM CBC WITH AUTO DIFF [HEME] AM MAGNESIUM [CHEM] AM 02/17/19 05:11 BASIC METABOLIC PANEL,BMP [CHEM] AM CBC WITH AUTO DIFF [HEME] AM MAGNESIUM [CHEM] AM 02/18/19 05:11 BASIC METABOLIC PANEL,BMP [CHEM] AM CBC WITH AUTO DIFF [HEME] AM MAGNESIUM [CHEM] AM - Plan Plan:: Assessment: Acute: S/p SVT - 2/2 Stimulant - She drinks about 5 cups of regular coffee a day - No tea or 5 hrs energy - She does not drink pop/soda - Has hypothyroidism but TSH is 4.5502 - Heart Palpitation, SOB/Dyspnea and Dizziness - EKG shows SVT with HR of 130s - No vaso-vagal or a trial Adenosine administered in ED - Received Cardizem bolus and was put on Cardizem drip but HR remains in the 130s - Need Beta blockade PRN IVP and Metoprolol 25 mg po BID - Consider Eliquis 5 mg po BID for stroke/dvt prophylaxis Probable PAF - Likely atrial arrhythmia because of her variable heart rates - Variable HR: from 97- 120s on telemetry - HR no longer in the 170s-180s as indicated by her - EKG this AM shows sinus rhythm with Wenckebach; serial EKG as indicated - CHADsDS2- VASc score of 3 with HAS BLED score of 2 - Currently on Eliquid 5 mg po BID - Continue Metoprolol 25 mg po BID and 5 mg IVP Lopressor for HR 110 2nd Degree AVB - She is on BB and CCB for haroon blocking agents - Currently asymptomatic Chronic: Asthma, GERD, HTN, Hypothyroidism and Pre-Diabetes Plan: She is much better clinically Routine AM Labs Avoid Caffeinated Products PT/OT to assess and treat 2D echo in AM SW/CM for d/c planning Code status: full Additional orders as above
[2019-02-15] MEDS: Apixaban 5 MG Tab PO SCH ×2 (08:42→20:12)
[2019-02-15] MEDS: Metoprolol Tartrate 25 MG Tab PO SCH ×2 (08:42→20:12)
[2019-02-15] MEDS: Levothyroxine 25 MCG Tab PO SCH (10:24)
[2019-02-15] MEDS: Losartan 25 MG Tab PO SCH (10:39)
[2019-02-15] MEDS: Diltiazem 125 MG in Sodium Chloride 0.9% 100 ML IV SCH (20:13)
[2019-02-15] MEDS: Temazepam 7.5 MG Cap PO PRN (21:37)
[2019-02-16] MEDS: Sodium Chloride 0.9% 1,000 ML IV SCH (00:58)
[2019-02-16] MEDS: Levothyroxine 25 MCG Tab PO SCH (06:09)
--- NOTE | 2019-02-16 06:30 | CR ---
Chest: Portable view of the chest was obtained. Comparison: Previous chest x-ray of 11/03/10. Heart size is normal. Tortuous thoracic aorta is seen. Lungs are clear. Bony structures are osteopenic. Scoliosis is noted within the spine. Impression: 1. Incidental findings. Nothing acute is appreciated on portable chest x-ray. Diagnostic code #2
--- NOTE | 2019-02-16 07:46 | PCM.PN ---
- General Info Date of Service: 02/16/19 Admission Dx/Problem (Free Text): Admission Diagnosis/Problem Admission Diagnosis/Problem Atrial fibrillation with rapid ventricular response Subjective Update: Follow up Functional Status: Reports: Pain Controlled, Tolerating Diet, Ambulating, Urinating. Denies: New Symptoms - Review of Systems General: Denies: Fever, Weakness, Fatigue, Malaise, Chills HEENT: Reports: No Symptoms Pulmonary: Denies: Shortness of Breath, Pleuritic Chest Pain Cardiovascular: Denies: Chest Pain, Palpitations, Dyspnea on Exertion, Edema, Lightheadedness Gastrointestinal: Denies: Abdominal Pain, Nausea, Vomiting Genitourinary: Reports: No Symptoms Musculoskeletal: Reports: No Symptoms Skin: Reports: No Symptoms Neurological: Denies: Confusion, Difficulty Walking, Weakness, Gait Disturbance Psychiatric: Denies: Depression, Anxiety, Agitation, Cravings, Hallucinations Systems Review Comment:: No overnight or acute issues. She felt pretty good this morning. Her Cardizem drip was re-started yesterday due to tachycardia. However it was stopped 2 AM this morning. She has been mostly in 80s. She is in the 80s-90s with ambulation. - Patient Data Vitals - Most Recent: Last Vital Signs Temp 36.5 C 02/16/19 04:00 Pulse 89 02/16/19 06:00 Resp 20 02/16/19 06:00 BP 132/80 02/16/19 06:00 Pulse Ox 96 02/16/19 06:00 Weight - Most Recent: 48.7 kg I&O - Last 24 Hours: Intake & Output 02/15/19 02/16/19 02/16/19 22:59 06:59 14:59 Intake Total 1980 1284 Output Total 1999 600 Balance -19 684 Lab Results Last 24 Hours: Laboratory Results - last 24 hr 02/16/19 02/16/19 Range/Units 05:15 05:15 WBC 7.79 (3.98-10.04) K/mm3 RBC 4.17 (3.98-5.22) M/mm3 Hgb 12.3 (11.2-15.7) gm/dl Hct 37.9 (34.1-44.9) % MCV 90.9 (79.4-94.8) fl MCH 29.5 (25.6-32.2) pg MCHC 32.5 (32.2-35.5) g/dl RDW Std Deviation 44.1 (36.4-46.3) fL Plt Count 195 (182-369) K/mm3 MPV 11.0 (9.4-12.3) fl Neut % (Auto) 60.6 (34.0-71.1) % Lymph % (Auto) 25.4 (19.3-51.7) % [place] % (Auto) 7.8 (4.7-12.5) % Eos % (Auto) 5.4 (0.7-5.8) Baso % (Auto) 0.5 (0.1-1.2) % Neut # (Auto) 4.72 (1.56-6.13) K/mm3 Lymph # (Auto) 1.98 (1.18-3.74) K/mm3 [place] # (Auto) 0.61 H (0.24-0.36) K/mm3 Eos # (Auto) 0.42 H (0.04-0.36) K/mm3 Baso # (Auto) 0.04 (0.01-0.08) K/mm3 Sodium 141 (136-145) mEq/L Potassium 3.8 (3.5-5.1) mEq/L Chloride 108 H (98-107) mEq/L Carbon Dioxide 22 (21-32) mEq/L Anion Gap 14.8 (5-15) BUN 13 (7-18) mg/dL Creatinine 0.6 (0.55-1.02) mg/dL Est Cr Clr Drug Dosing 59.09 mL/min Estimated GFR (MDRD) > 60 (>60) mL/min BUN/Creatinine Ratio 21.7 H (14-18) Glucose 117 H (83-115) mg/dL Calcium 8.0 L (8.5-10.1) mg/dL Magnesium 1.7 L (1.8-2.4) mg/dl Med Orders - Current: Current Medications Acetaminophen (Tylenol) 650 mg PO Q4H PRN PRN Reason: Pain (Mild 1-3)/fever Hydrocodone Bitart/Acetaminophen ([place] 325-5 Mg) 1 tab PO Q4H PRN PRN Reason: Pain (moderate 4-6) Albuterol/Ipratropium (Duoneb 3.0-0.5 Mg/3 Ml) 3 ml NEB Q4H PRN PRN Reason: Shortness Of Breath/wheezing Apixaban (Eliquis) 5 mg PO BID [facility] Last Admin: 02/15/19 20:12 Dose: 5 mg Bisacodyl (Dulcolax) 5 mg PO DAILY PRN PRN Reason: Constipation Docusate Sodium (Colace) 100 mg PO BID PRN PRN Reason: Constipation Hydralazine HCl (Apresoline) 20 mg IVPUSH Q4H PRN PRN Reason: Hypertension Hydromorphone HCl (Dilaudid) 0.25 mg IVPUSH Q2H PRN PRN Reason: Pain (severe 7-10) Diltiazem HCl 125 mg/ Sodium (Chloride) 125 mls @ 5 mls/hr IV TITRATE [facility]; Protocol Last Titration: 02/16/19 02:10 Dose: 0 mg/hr, 0 mls/hr Promethazine HCl 6.25 mg/ (Sodium Chloride) 50.25 mls @ 100 mls/hr IV Q6H PRN PRN Reason: Nausea/Vomiting Magnesium Sulfate 2 gm/ Premix 50 mls @ 25 mls/hr IV ONETIME ONE Stop: 02/16/19 09:44 Levothyroxine Sodium (Levothyroxine) 25 mcg PO ACBREAKFAST [facility] Last Admin: 02/16/19 06:09 Dose: 25 mcg Lorazepam (Ativan) 0.5 mg IV Q6H PRN PRN Reason: Anxiety Losartan Potassium (Cozaar) 50 mg PO DAILY [facility] Last Admin: 02/15/19 10:39 Dose: Not Given Metoprolol Tartrate (Lopressor) 5 mg IVPUSH Q4H PRN PRN Reason: Tachycardia Last Admin: 02/15/19 10:24 Dose: 5 mg Metoprolol Tartrate (Lopressor) 25 mg PO Q12H [facility] Last Admin: 02/15/19 20:12 Dose: 25 mg Ondansetron HCl (Zofran) 4 mg IV Q6H PRN PRN Reason: Nausea/Vomiting Polyethylene Glycol (Miralax) 17 gm PO DAILY PRN PRN Reason: Constipation Senna/Docusate Sodium (Senna Plus) 1 tab PO BID PRN PRN Reason: Constipation Sodium Chloride (Saline Flush) 10 ml FLUSH ASDIRECTED PRN PRN Reason: Keep Vein Open Last Admin: 02/14/19 18:00 Dose: 10 ml Temazepam (Restoril) 7.5 mg PO BEDTIME PRN PRN Reason: Sleep Last Admin: 02/15/19 21:37 Dose: 7.5 mg Discontinued Medications Adenosine (Adenocard) Confirm Administered Dose 6 mg .ROUTE .STK-MED ONE Stop: 02/14/19 17:44 Last Admin: 02/14/19 17:59 Dose: Not Given Adenosine (Adenocard) Confirm Administered Dose 12 mg .ROUTE .STK-MED ONE Stop: 02/14/19 17:44 Last Admin: 02/14/19 17:59 Dose: Not Given Diltiazem HCl (Cardizem) 20 mg IVPUSH ONETIME ONE Stop: 02/14/19 17:51 Last Admin: 02/14/19 18:15 Dose: 10 mg Diltiazem HCl (Cardizem) 10 mg IVPUSH ONETIME ONE Stop: 02/14/19 18:32 Last Admin: 02/14/19 18:47 Dose: 10 mg Lactated Ringer's (Ringers, Lactated) 1,000 mls @ 150 mls/hr IV ASDIRECTED SOPHY Sodium Chloride (Normal Saline) 1,000 mls @ 150 mls/hr IV ASDIRECTED SOPHY Last Infusion: 02/16/19 06:38 Dose: 100 mls/hr Magnesium Sulfate 2 gm/ Premix 50 mls @ 25 mls/hr IV ONETIME ONE Stop: 02/15/19 09:15 Last Admin: 02/15/19 07:42 Dose: 25 mls/hr - Exam General: Alert, Oriented, Cooperative, No Acute Distress HEENT: Pupils Equal, Pupils Reactive, EOMI, Mucous Membr. Moist/[place] Neck: Supple Lungs: Clear to Auscultation, Normal Respiratory Effort Cardiovascular: Regular Rate, Regular Rhythm GI/Abdominal Exam: Normal Bowel Sounds, Soft, Non-Tender, No Organomegaly, No Distention, No Abnormal Bruit (Female) Exam: Deferred Back Exam: Normal Inspection, Decreased Range of Motion Extremities: Normal Inspection, Normal Range of Motion, Non-Tender, No Pedal Edema, Normal Capillary Refill Peripheral Pulses: 2+: Dorsalis Pedis (L), Dorsalis Pedis (R) Skin: Warm, Dry, Intact Neurological: No New Focal Deficit, Normal Gait Psy/Mental Status: Alert, Normal Affect, Normal Mood - Problem List Review Problem List Initiated/Reviewed/Updated: Yes - My Orders Last 24 Hours: My Active Orders 02/15/19 07:59 EKG 12 Lead [EK] Routine 02/15/19 09:45 Levothyroxine 25 mcg PO ACBREAKFAST Losartan [Cozaar] 50 mg PO DAILY 02/15/19 10:01 EKG 12 Lead [EK] Routine 02/15/19 Breakfast 2 Gram Sodium Diet [DIET] 2 Gram Sodium Diet [DIET] 02/16/19 07:00 Echo Comp wo Cont [US] Routine 02/16/19 07:19 EKG 12 Lead [EK] Urgent 02/16/19 07:23 EKG Documentation Completion [RC] ASDIRECTED 02/16/19 07:45 Magnesium Sulfate/Water [Magnesium Sulfate in Water Premix] 2 gm Premix Bag 1 bag IV ONETIME 02/16/19 14:00 MG [MAGNESIUM] [CHEM] Routine 02/17/19 05:11 BASIC METABOLIC PANEL,BMP [CHEM] AM CBC WITH AUTO DIFF [HEME] AM MAGNESIUM [CHEM] AM 02/18/19 05:11 BASIC METABOLIC PANEL,BMP [CHEM] AM CBC WITH AUTO DIFF [HEME] AM MAGNESIUM [CHEM] AM - Plan Plan:: Assessment: Acute: S/p SVT - 2/2 Stimulant - She drinks about 5 cups of regular coffee a day - No tea or 5 hrs energy - She does not drink pop/soda - Has hypothyroidism but TSH is 4.5502 - Heart Palpitation, SOB/Dyspnea and Dizziness - EKG shows SVT with HR of 130s - No vaso-vagal or a trial Adenosine administered in ED - Received Cardizem bolus and was put on Cardizem drip but HR remains in the 130s - Need Beta blockade PRN IVP and Metoprolol 25 mg po BID - Consider Eliquis 5 mg po BID for stroke/dvt prophylaxis Probable PAF now Sinus Rhythm - Likely atrial arrhythmia because of her variable heart rates - Variable HR: from 97-120s on telemetry; HR controlled 80s-90s with ambulation - HR no longer in the 170s-180s as indicated by her - EKG this AM shows sinus rhythm with Wenckebach; serial EKG as indicated - CHADsDS2-VASc score of 3 with HAS BLED score of 2 - Currently on Eliquis 5 mg po BID - Continue Metoprolol 25 mg po BID and 5 mg IVP Lopressor for HR 110 S/p 2nd Degree AVB - She is on BB and CCB for haroon blocking agents - Currently asymptomatic Hypomagnesemia - Mg 1.7 - Likely 2/2 inadequate intake - Replete and monitor Chronic: Asthma, GERD, HTN, Hypothyroidism and Pre-Diabetes Plan: She remains clinically stable Routine AM Labs PT/OT to assess and treat 2D echo-completed pending results SW/CM for d/c planning Code status: full Additional orders as above Possible discharge in AM
[2019-02-16] MEDS ORDERED: Magnesium Sulfate/Water 2 GM in Premix Bag 1 BAG IV ONE (08:00)
[2019-02-16] MEDS: Metoprolol Tartrate 25 MG Tab PO SCH ×2 (09:33→20:38)
[2019-02-16] MEDS: Apixaban 5 MG Tab PO SCH ×2 (09:35→20:38)
[2019-02-16] MEDS: Losartan 25 MG Tab PO SCH (09:35)
[2019-02-17] MEDS: Levothyroxine 25 MCG Tab PO SCH (06:31)
[2019-02-17] MEDS: Losartan 25 MG Tab PO SCH (09:50)
[2019-02-17] MEDS: Metoprolol Tartrate 25 MG Tab PO SCH (09:52)
[2019-02-17] MEDS: Apixaban 5 MG Tab PO SCH (09:53)
--- NOTE | 2019-02-17 12:57 | PCM.DCSUM1 ---
Discharge Summary - Hospital Course Free Text/Narrative:: This is a 74 yo elderly white female with past medical hx/o Asthma, GERD, HTN, Hypothyroidism and Pre-Diabetes who comes in with complaints of heart palpitation associated with shortness of breath and dizziness that started about noon today. She denies any hx/o cardiac dysrhythmia. No previous hx/o it in the past. She is not any "uppers" except she drinks about 5 cups of regular coffee a day. She does not drink tea or soda. However she carries a hx/o hypothyroidism. Her initial work up in ED is fairly unremarkable. Her EKG shows SVT with HR of 130. She received a bolus of Cardizem IVP and currently on Cardizem drip with HR still in the 140s-150s. She is primarily coming in for treatment of SVT. Diagnosis: Stroke: No Modified Morrill Scale: No Symptoms at All Modified Morrill Scale Score: 0 - Discharge Data Discharge Date: 02/17/19 Discharge Disposition: Home, Self-Care 01 Condition: Good - Referral to Home Health Primary Care Physician: Kina Joshi NP - Patient Summary/Data Operative Procedure(s) Performed: None Complications: None Consults: Consultations 02/14/19 20:42 Consult to Case Management/Insurance Actuary [CONS] Routine OT Evaluation and Treatment [CONS] Routine PT Evaluation and Treatment [CONS] Routine 02/16/19 13:20 Consult to Dietary [Consult to Religious Healer] [CONS] Routine Labs Pending at D/C: None Recommended Follow-up Testing/Procedures: Cardiology after discharge Planned Operative Procedure(s) after DC: None Hospital Course: Patient was primarily admitted for shortness of breath with palpitation and was initially diagnosed with SVT which we felt was due to her excessive caffein intake. She received Cardizem drip and she improved initially. However the following day, she went into atrial fibrillation with rvr. Hence, she was immediately put on on Cardizem drip along with beta blockade and she converted back to sinus rhythm with this regimen. Her 2D echo revealed normal EF of 60-65 % w/o regional wall motion abnormality. Her hospital course was uncomplicated and once she was medically stable, she was then released from the facility. She went home with Metoprolol Tartrate for rate control agent and Eliquis 5 mg po BID for stroke prophylaxis. She was advised to follow with PCP after discharge. - Patient Instructions Diet: Usual Diet as Tolerated Activity: As Tolerated Driving: Do Not Drive Showering/Bathing: May Shower Notify Provider of: Fever, Increased Pain, Swelling and Redness, Drainage, Nausea and/or Vomiting Other/Special Instructions: - Please take all new medications as directed. - Resume routine home medications and activity as tolerated. - Call or follow up with your doctor for any concerns or issues after discharge. - Recommend cardiology eval after discharge. - Follow up with your doctor in 1 week. - Come back or seek immediate care should your symptoms persist or get worse - Discharge Plan *PRESCRIPTION DRUG MONITORING PROGRAM REVIEWED*: Not Applicable *COPY OF PRESCRIPTION DRUG MONITORING REPORT IN PATIENT MILLIE: Not Applicable Prescriptions/Med Rec: Apixaban [Eliquis] 5 mg PO BID #60 tablet Metoprolol Tartrate [Lopressor] 25 mg PO Q12H #60 tablet Home Medications: Home Meds Alendronate Sodium [Fosamax] 70 mg PO WEEKLY 02/15/19 [History] Levothyroxine [Synthroid] 25 mcg PO DAILY 02/15/19 [History] Apixaban [Eliquis] 5 mg PO BID #60 tablet 02/17/19 [Rx] Losartan Potassium 50 mg PO DAILY #0 02/17/19 [Rx] Metoprolol Tartrate [Lopressor] 25 mg PO Q12H #60 tablet 02/17/19 [Rx] Oxygen Therapy Mode: Room Air Patient Handouts: Supraventricular Tachycardia, Adult, [id number], Hypomagnesemia, Apixaban oral tablets, Atrial Fibrillation, Caffeine Use Disorder Referrals: Kina Joshi NP [Primary Care Provider] - 02/18/19 7:30 am (Keep your well woman appointment tomorrow Saturday, . Discuss your hospitalization and future follow up at this appointment. ) - Discharge Summary/Plan Comment DC Time >30 min.: No Discharge Summary/Plan Comment: Discharge to Home - General Info Date of Service: 02/17/19 Admission Dx/Problem (Free Text: Admission Diagnosis/Problem Admission Diagnosis/Problem Atrial fibrillation with rapid ventricular response Subjective Update: Follow up Functional Status: Reports: Pain Controlled, Tolerating Diet, Ambulating, Urinating - Review of Systems General: Denies: Fever, Weakness, Fatigue, Malaise, Chills HEENT: Reports: No Symptoms Pulmonary: Denies: Shortness of Breath Cardiovascular: Denies: Chest Pain, Palpitations, Dyspnea on Exertion, Lightheadedness Gastrointestinal: Denies: Abdominal Pain, Nausea, Vomiting Genitourinary: Reports: No Symptoms Musculoskeletal: Reports: No Symptoms Skin: Reports: No Symptoms Neurological: Denies: Confusion, Dizziness, Difficulty Walking, Weakness, Gait Disturbance Psychiatric: Denies: Depression, Mood Lability, Anxiety, Agitation, Cravings, Hallucinations, Suicidal Ideation Systems Review Comment: No overnight or acute issues. No chest pain or heart palpitations. Her HR remains well controlled. - Patient Data Vitals - Most Recent: Last Vital Signs Temp 36.6 C 02/17/19 08:32 Pulse 97 02/17/19 09:52 Resp 22 H 02/17/19 08:32 BP 136/78 02/17/19 09:52 Pulse Ox 96 02/17/19 08:32 Weight - Most Recent: 48.852 kg I&O - Last 24 hours: Intake & Output 02/16/19 02/17/19 02/17/19 22:59 06:59 14:59 Intake Total 960 600 360 Output Total 400 Balance 960 200 360 Lab Results - Last 24 hrs: Laboratory Results - last 24 hr 02/16/19 02/17/19 02/17/19 Range/Units 14:04 07:45 07:45 WBC 8.69 (3.98-10.04) K/mm3 RBC 4.32 (3.98-5.22) M/mm3 Hgb 12.8 (11.2-15.7) gm/dl Hct 38.9 (34.1-44.9) % MCV 90.0 (79.4-94.8) fl MCH 29.6 (25.6-32.2) pg MCHC 32.9 (32.2-35.5) g/dl RDW Std Deviation 43.0 (36.4-46.3) fL Plt Count 196 (182-369) K/mm3 MPV 11.0 (9.4-12.3) fl Neut % (Auto) 67.6 (34.0-71.1) % Lymph % (Auto) 20.7 (19.3-51.7) % Rains % (Auto) 6.8 (4.7-12.5) % Eos % (Auto) 4.1 (0.7-5.8) Baso % (Auto) 0.6 (0.1-1.2) % Neut # (Auto) 5.87 (1.56-6.13) K/mm3 Lymph # (Auto) 1.80 (1.18-3.74) K/mm3 Rains # (Auto) 0.59 H (0.24-0.36) K/mm3 Eos # (Auto) 0.36 (0.04-0.36) K/mm3 Baso # (Auto) 0.05 (0.01-0.08) K/mm3 Sodium 140 (136-145) mEq/L Potassium 4.1 (3.5-5.1) mEq/L Chloride 107 (98-107) mEq/L Carbon Dioxide 23 (21-32) mEq/L Anion Gap 14.1 (5-15) BUN 19 H (7-18) mg/dL Creatinine 0.6 (0.55-1.02) mg/dL Est Cr Clr Drug Dosing 59.09 mL/min Estimated GFR (MDRD) > 60 (>60) mL/min BUN/Creatinine Ratio 31.7 H (14-18) Glucose 110 (83-115) mg/dL Calcium 8.9 (8.5-10.1) mg/dL Magnesium 2.4 1.9 (1.8-2.4) mg/dl Med Orders - Current: Current Medications Acetaminophen (Tylenol) 650 mg PO Q4H PRN PRN Reason: Pain (Mild 1-3)/fever Hydrocodone Bitart/Acetaminophen ([place] 325-5 Mg) 1 tab PO Q4H PRN PRN Reason: Pain (moderate 4-6) Albuterol/Ipratropium (Duoneb 3.0-0.5 Mg/3 Ml) 3 ml NEB Q4H PRN PRN Reason: Shortness Of Breath/wheezing Apixaban (Eliquis) 5 mg PO BID SOPHY Last Admin: 02/17/19 09:53 Dose: 5 mg Bisacodyl (Dulcolax) 5 mg PO DAILY PRN PRN Reason: Constipation Docusate Sodium (Colace) 100 mg PO BID PRN PRN Reason: Constipation Hydralazine HCl (Apresoline) 20 mg IVPUSH Q4H PRN PRN Reason: Hypertension Hydromorphone HCl (Dilaudid) 0.25 mg IVPUSH Q2H PRN PRN Reason: Pain (severe 7-10) Promethazine HCl 6.25 mg/ (Sodium Chloride) 50.25 mls @ 100 mls/hr IV Q6H PRN PRN Reason: Nausea/Vomiting Levothyroxine Sodium (Levothyroxine) 25 mcg PO ACBREAKFAST [facility] Last Admin: 02/17/19 06:31 Dose: 25 mcg Lorazepam (Ativan) 0.5 mg IV Q6H PRN PRN Reason: Anxiety Losartan Potassium (Cozaar) 50 mg PO DAILY [facility] Last Admin: 02/17/19 09:50 Dose: 50 mg Metoprolol Tartrate (Lopressor) 5 mg IVPUSH Q4H PRN PRN Reason: Tachycardia Last Admin: 02/15/19 10:24 Dose: 5 mg Metoprolol Tartrate (Lopressor) 25 mg PO Q12H [facility] Last Admin: 02/17/19 09:52 Dose: 25 mg Ondansetron HCl (Zofran) 4 mg IV Q6H PRN PRN Reason: Nausea/Vomiting Polyethylene Glycol (Miralax) 17 gm PO DAILY PRN PRN Reason: Constipation Senna/Docusate Sodium (Senna Plus) 1 tab PO BID PRN PRN Reason: Constipation Sodium Chloride (Saline Flush) 10 ml FLUSH ASDIRECTED PRN PRN Reason: Keep Vein Open Last Admin: 02/14/19 18:00 Dose: 10 ml Temazepam (Restoril) 7.5 mg PO BEDTIME PRN PRN Reason: Sleep Last Admin: 02/15/19 21:37 Dose: 7.5 mg Discontinued Medications Adenosine (Adenocard) Confirm Administered Dose 6 mg .ROUTE .STK-MED ONE Stop: 02/14/19 17:44 Last Admin: 02/14/19 17:59 Dose: Not Given Adenosine (Adenocard) Confirm Administered Dose 12 mg .ROUTE .STK-MED ONE Stop: 02/14/19 17:44 Last Admin: 02/14/19 17:59 Dose: Not Given Diltiazem HCl (Cardizem) 20 mg IVPUSH ONETIME ONE Stop: 02/14/19 17:51 Last Admin: 02/14/19 18:15 Dose: 10 mg Diltiazem HCl (Cardizem) 10 mg IVPUSH ONETIME ONE Stop: 02/14/19 18:32 Last Admin: 02/14/19 18:47 Dose: 10 mg Diltiazem HCl 125 mg/ Sodium (Chloride) 125 mls @ 5 mls/hr IV TITRATE SOPHY; Protocol Last Titration: 02/16/19 02:10 Dose: 0 mg/hr, 0 mls/hr Lactated Ringer's (Ringers, Lactated) 1,000 mls @ 150 mls/hr IV ASDIRECTED SOPHY Sodium Chloride (Normal Saline) 1,000 mls @ 150 mls/hr IV ASDIRECTED SOPHY Last Infusion: 02/16/19 06:38 Dose: 100 mls/hr Magnesium Sulfate 2 gm/ Premix 50 mls @ 25 mls/hr IV ONETIME ONE Stop: 02/15/19 09:15 Last Admin: 02/15/19 07:42 Dose: 25 mls/hr Magnesium Sulfate 2 gm/ Premix 50 mls @ 25 mls/hr IV ONETIME ONE Stop: 02/16/19 09:59 Last Admin: 02/16/19 09:27 Dose: 25 mls/hr - Exam General: Reports: Alert, Oriented, Cooperative, No Acute Distress HEENT: Reports: Pupils Equal, Pupils Reactive, EOMI, Mucous Membr. Moist/[place] Neck: Reports: Supple Lungs: Reports: Clear to Auscultation, Normal Respiratory Effort Cardiovascular: Reports: Regular Rate, Regular Rhythm GI/Abdominal Exam: Normal Bowel Sounds, Soft, Non-Tender, No Organomegaly, No Distention, No Abnormal Bruit, No Mass (Female) Exam: Deferred Rectal (Female) Exam: Deferred Back Exam: Reports: Normal Inspection, Decreased Range of Motion Extremities: Normal Inspection, Normal Range of Motion, Non-Tender, No Pedal Edema, Normal Capillary Refill Skin: Reports: Warm, Dry, Intact Neurological: Reports: No New Focal Deficit Psy/Mental Status: Reports: Alert, Normal Affect, Normal Mood
== END 2019-02-17 14:56 | disposition home or self-care (01) | DRG 310 ==
LOC: JD.ED 17:32 → JD.ICU 20:15 → JD.MS 02-16 14:08
PROVIDERS: ADMIT Internal Medicine; ATTEND Internal Medicine
DX: I48.91 Unspecified atrial fibrillation (principal); I47.1 Supraventricular tachycardia; R00.2 Palpitations; R42 Dizziness and giddiness; I44.1 Atrioventricular block, second degree; I48.0 Paroxysmal atrial fibrillation; E83.42 Hypomagnesemia; I10 Essential (primary) hypertension; J45.909 Unspecified asthma, uncomplicated; K21.9 Gastro-esophageal reflux disease without esophagitis; E03.9 Hypothyroidism, unspecified; T78.1XXA Other adverse food reactions, not elsewhere classified, initial encounter; R73.03 Prediabetes; Z90.49 Acquired absence of other specified parts of digestive tract; Z88.0 Allergy status to penicillin; Z88.1 Allergy status to other antibiotic agents; Z79.890 Hormone replacement therapy; Z79.899 Other long term (current) drug therapy
CPT/HCPCS: 36415; 71045; 80053; 83880; 84443; 84484; 85025; 85610; 93005 ×2; 96374; 96376; 99285; J3490 ×4; J7030; 80048; 82553; 83735; 84439; 93010; 93306; 97161-GP; 97165-GO; 97535-GO; 99283; A9270-GY; J3475; J7040

== ENCOUNTER → 2021-03-06 | Day surgery (SDC) | payer MEDICARE, OTHER ==
[~2021-03-06] MED LIST: Acetaminophen/HYDROcodone 325-5 MG Tab PO STA; HYDROmorphone 0.5 MG/0.5 ML Syringe IVPUSH PRN; Lactated Ringers 1,000 ML IV SCH; Lactated Ringers 1,000 ML ONE; Lidocaine 1%/Sod Bicarbonate in NS 8.4% 1 ML Syringe IDERM PRN; Midazolam 1 MG/ML 2 ML SDV ONE; Morphine 8 MG, EPINEPHrine 0.3 MG, Cefuroxime 750 MG, Ketorolac 30 MG, Sodium Chloride ... PRN; Ondansetron 4 MG/2 ML SDV IVPUSH PRN; Propofol 200 MG/20 ML SDV ONE; Sodium Chloride 0.9% 10 ML Syringe FLUSH PRN; Vancomycin 1 GM SDV ONE; ceFAZolin 1 GM Vial ONE; ePHEDrine 50 MG/ML SDV ONE; fentaNYL 100 MCG/2 ML SDV IVPUSH PRN
--- NOTE | 2021-03-06 07:23 | PCM.PREANE ---
Preanesthetic Assessment - Procedure Proposed Procedure: Right total hip - Anesthesia/Transfusion/Family Hx Anesthesia History: Prior Anesthesia Reaction Type of Anesthesia Reaction: Excessive Nausea/Vomiting Family History of Anesthesia Reaction: No Transfusion History: No Prior Transfusion(s) Intubation History: Unknown - Review of Systems General: No Symptoms Pulmonary: No Symptoms Cardiovascular: No Symptoms Gastrointestinal: No Symptoms Neurological: No Symptoms Other: Reports: Easy Bleeding, Easy Bruising, Diabetes, Thyroid Problems - Physical Assessment NPO Status Date: 03/05/21 NPO Status Time: 21:00 Vital Signs: Last Vital Signs Temp 97.9 F 03/06/21 06:55 Pulse 77 03/06/21 06:55 Resp 17 03/06/21 06:55 BP 130/87 03/06/21 06:55 Pulse Ox 97 03/06/21 06:55 Height: 1.45 m Weight: 50.4 kg ASA Class: 3 Mental Status: Alert & Oriented x3 Airway Class: Mallampati = 2 Dentition: Reports: Caries Thyro-Mental Finger Breadths: 2 Mouth Opening Finger Breadths: 2 ROM/Head Extension: Full Lungs: Clear to Auscultation, Normal Respiratory Effort Cardiovascular: Regular Rate, Regular Rhythm, No Murmurs - Lab Values: Awaiting for results and will proceed if within acceptable range - Imaging/EKG Impressions: nsr hr 91 - Allergies Allergies/Adverse Reactions: Allergies Allergy/AdvReac Type Severity Reaction Status Date / Time penicillin Allergy Hives Verified 03/06/21 07:22 vancomycin Allergy Hives Verified 03/06/21 07:22 - Blood Blood Available: Yes Product(s) Available: PRBC - Anesthesia Plan Beta Sergio: Metoprolol Med Last Dose Date: 03/06/21 Med Last Dose Time: 05:30 - Acknowledgements Anesthesia Type Planned: General Anesthesia, Spinal Pt an Appropriate Candidate for the Planned Anesthesia: Yes Alternatives and Risks of Anesthesia Discussed w Pt/Guardian: Yes Pt/Guardian Understands and Agrees with Anesthesia Plan: Yes PreAnesthesia Questionnaire HEENT History: Reports: Cataract, Hard of Hearing, Impaired Vision, Other (See B elow) Other HEENT History: right eye abrasion, impacted cerumen, right otitis externa, wears glasses, has hearing aids Cardiovascular History: Reports: Afib, Arrhythmia, Hypertension, Other (See Below) Other Cardiovascular History: SVT Respiratory History: Reports: Asthma, Bronchitis, Recurrent Other Respiratory History: pneumonia, cough, URI Gastrointestinal History: Reports: GERD Genitourinary History: Reports: UTI, Recurrent, Other (See Below) Other Genitourinary History: frequency 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: Reports: Other (See Below) Other OB/BYN History: breast tenderness Musculoskeletal History: Reports: Arthritis, Osteoporosis Neurological History: Reports: Migraines Psychiatric History: Reports: None Endocrine/Metabolic History: Reports: Diabetes, Type II, Hypothyroidism Hematologic History: Reports: None Immunologic History: Reports: None Oncologic (Cancer) History: Reports: None Dermatologic History: Reports: Other (See Below) Other Dermatologic History: actinic keratosis, facial skin lesion, atopic dermatitis, rash - Infectious Disease History Infectious Disease History: Reports: None - Past Surgical History Head Surgeries/Procedures: Reports: None HEENT Surgical History: Reports: Cataract Surgery, Tonsillectomy Cardiovascular Surgical History: Reports: None Respiratory Surgical History: Reports: None GI Surgical History: Reports: Appendectomy Female Surgical History: Reports: None Male Surgical History: Reports: None Endocrine Surgical History: Reports: None Neurological Surgical History: Reports: None Musculoskeletal Surgical History: Reports: Other (See Below) Other Musculoskeletal Surgeries/Procedures:: foot surgery, left leg surgery x 2 Oncologic Surgical History: Reports: None Dermatological Surgical History: Reports: None - SUBSTANCE USE Tobacco Use Status *Q: Never Tobacco User Second Hand Smoke Exposure: Yes Days Per Week of Alcohol Use: 0 Number of Drinks Per Day: 0 Total Drinks Per Week: 0 Recreational Drug Use History: No - HOME MEDS Home Medications: Home Meds Alendronate Sodium [Fosamax] 70 mg PO WEEKLY 02/15/19 [History] Levothyroxine [Synthroid] 25 mcg PO DAILY 02/15/19 [History] Apixaban [Eliquis] 5 mg PO BID #60 tablet 02/17/19 [Rx] Losartan Potassium 50 mg PO DAILY #0 02/17/19 [Rx] Metoprolol Tartrate [Lopressor] 25 mg PO Q12H #60 tablet 02/17/19 [Rx] Albuterol Sulfate [Albuterol Sulfate HFA] 1 - 2 puff INH BID PRN 03/05/21 [History] Calcium Carbonate [Calcium] 1,000 mg PO DAILY 03/05/21 [History] Cholecalciferol (Vitamin D3) [Vitamin D3] 4,000 unit PO DAILY 03/05/21 [History] Magnesium Oxide [Magnesium] 500 mg PO DAILY 03/05/21 [History] Omeprazole Magnesium [Prilosec Otc] 20 mg PO DAILY 03/05/21 [History] Triamcinolone Acetonide 1 dose TOP BID PRN 03/05/21 [History] glipiZIDE [Glipizide ER] 2.5 mg PO DAILY 03/05/21 [History] Hydrocodone/Acetaminophen [HYDROcodone-Acetaminophen 5-325 MG] 1 - 2 each PO Q6H PRN #30 tablet 03/06/21 [Rx] - CURRENT (IN HOUSE) MEDS Current Meds: Current Medications Morphine Sulfate 8 mg/Epinephrine HCl 0.3 mg/Cefuroxime Sodium 750 mg/Ketorolac Tromethamine 30 mg/Sodium Chloride 7.9 ml 0 mg .XX ASDIRECTED PRN PRN Reason: Pain Stop: 03/06/21 16:00 Lactated Ringer's (Ringers, Lactated) 1,000 mls @ 125 mls/hr IV ASDIRECTED SOPHY Stop: 03/06/21 23:00 Lidocaine/Sodium Bicarbonate (Lidocaine 1%/Sod Bicarbonate In Ns 8.4% 1 Ml Syringe) 0.25 ml IDERM ONETIME PRN PRN Reason: Prior to IV Start Stop: 03/06/21 18:00 Sodium Chloride (Sodium Chloride 0.9% 10 Ml Syringe) 10 ml FLUSH ASDIRECTED PRN PRN Reason: Keep Vein Open Stop: 03/06/21 18:00 Discontinued Medications Cefazolin Sodium (Cefazolin 1 Gm Vial) Confirm Administered Dose 2 gm .ROUTE .STK-MED ONE Stop: 03/06/21 07:12 Midazolam HCl (Midazolam 1 Mg/Ml 2 Ml Sdv) Confirm Administered Dose 2 mg .ROUTE .STK-MED ONE Stop: 03/06/21 07:14 Propofol (Propofol 200 Mg/20 Ml Sdv) Confirm Administered Dose 200 mg .ROUTE .STK-MED ONE Stop: 03/06/21 07:14 Propofol (Propofol 200 Mg/20 Ml Sdv) Confirm Administered Dose 200 mg .ROUTE .STK-MED ONE Stop: 03/06/21 07:14
--- NOTE | 2021-03-06 10:07 | PCM.POSTAN ---
POST ANESTHESIA ASSESSMENT - MENTAL STATUS Mental Status: Alert, Oriented - VITAL SIGNS Vital Signs: Last Vital Signs Temp 97.9 F 03/06/21 06:55 Pulse 77 03/06/21 06:55 Resp 17 03/06/21 06:55 BP 130/87 03/06/21 06:55 Pulse Ox 97 03/06/21 06:55 Vital signs at 0955: 100/66 HR 92 RR 20 Temp 98.0 98% RA - RESPIRATORY Respiratory Status: Respiratory Rate WNL, Airway Patent, O2 Saturation Stable - CARDIOVASCULAR CV Status: Pulse Rate WNL, Blood Pressure Stable - GASTROINTESTINAL GI Status: No Symptoms - PAIN Pain Score: 0 - POST OP HYDRATION Hydration Status: Adequate & Stable
--- NOTE | 2021-03-06 10:32 | CR ---
Pelvis and right hip: AP view of the pelvis was obtained as well as crosstable lateral views of the right hip. Comparison: Prior CT right hip of 02/24/21 as well as prior pelvis and right hip x-ray of 11/29/20. Right hip prosthesis is noted. Components are aligned. Soft tissue air is seen. Bony structures are osteopenic. No acute osseous abnormality is otherwise seen. Impression: 1. Satisfactory postoperative radiographic appearance of recently placed right hip prosthesis. Diagnostic code #2
--- NOTE | 2021-03-06 14:01 | PCM48HPAN ---
Post Anesthesia Note - EVALUATION WITHIN 48HRS OF ANESTHETIC Vital Signs in Normal Range: Yes Patient Participated in Evaluation: Yes Respiratory Function Stable: Yes Airway Patent: Yes Cardiovascular Function Stable: Yes Hydration Status Stable: Yes Pain Control Satisfactory: Yes Nausea and Vomiting Control Satisfactory: Yes Mental Status Recovered: Yes Vital Signs: Last Vital Signs Temp 98.1 F 03/06/21 10:30 Pulse 78 03/06/21 10:40 Resp 19 03/06/21 10:40 BP 113/68 03/06/21 10:40 Pulse Ox 100 03/06/21 10:40
--- NOTE | 2021-03-21 06:51 | PCM.OPNOTE ---
- General Post-Op/Procedure Note Date of Surgery/Procedure: 03/06/21 Operative Procedure(s): right total hip arthroplasty with shaye arin robotics Pre Op Diagnosis: right hip osteoarthrosis Post-Op Diagnosis: Same Anesthesia Technique: Local, MAC, Spinal Primary Surgeon: Lauro Terrell Anesthesia Provider: Beth Everett Resident Athletic Trainer: Chapis Kerr Resident Athletic Trainer: Linda England EBL in mLs: 50 Complications: None Condition: Good Free Text/Narrative:: 48 cup 4 stem 36-2.5
--- NOTE | 2021-03-21 08:12 | OR ---
DATE OF OPERATION: 03/06/2021 SURGEON: Lauro Terrell MD OPERATION PERFORMED: Right total hip arthroplasty with [employer] robotics. PREOPERATIVE DIAGNOSIS: Right hip osteoarthrosis. POSTOPERATIVE DIAGNOSIS: Right hip osteoarthrosis. ANESTHESIA: Local MAC with spinal. ANESTHESIA PROVIDER: Stanley Barfield. ASSISTANTS: Chapis Kerr PA-C and Linda England LPN. ESTIMATED BLOOD LOSS: 50 mL. COMPLICATIONS: None. CONDITION: Stable. IMPLANT: 1. Herrin size 48 mm solid Tritanium II acetabular cup. 2. Herrin size 4 Accolade II stem. 3. Herrin size 36 -0.25 Biolox femoral head. DESCRIPTION OF PROCEDURE: The patient was identified in the preoperative holding area. Proper site was marked and identified by the surgeon. The patient was taken back to the operative theater, where after adequate anesthesia, the patient was placed in the left lateral decubitus position. Axillary roll was placed. All bony prominences well padded. Pegs were then placed and well padded. The patient's gluteal fold was parallel to the floor. Right hip was then sterilely prepped and draped in the usual sterile fashion. OR right time-out was performed. The patient received 2 g IV Ancef. At this time, 3 small focal incisions were made over the iliac crest 3 fingerbreadths posterior to the ASIS. Three 4.0 Schanz pins were then placed and the Yasmin Nav robotic array was placed as well as the checkpoint onto the iliac crest. Standard posterior incision was made. This was taken down to the IT band and gluteal fascia which was incised along the incisional length. Charnley retractor was then placed. Takedown of the short external rotators as well as a capsulotomy was performed down to the lesser trochanter. Checkpoint was placed in the greater trochanter and hip lengths were measured using the Herrin Nav robotic array. Hip was then dislocated. Neck cut was completed. Attention was turned to the acetabulum. Anterior and posterior acetabular retractors were placed. Circumferential removal of the pulvinar was done at this time as well as any remaining labrum. Checkpoint was placed on the superior rim of the acetabulum. At this point, a 15 points were obtained intra-articularly in the acetabulum for the Herrin Nav robotic plan. Anterior and posterior horns were then marked and 15 points were taken extra-articularly as well as the checkpoint on the iliac crest was taken. At this time, the 48 mm reamer was placed on the robotic arm. This was brought in and ream was completed at 45 degrees of abduction and 20 degrees of anteversion. It was found to be good adequate ream with good bony bleeding bed. A 48 mm solid Tritanium II acetabular cup was then placed on Amitree robotic arm, was impacted in place. The 36 mm flat liner was then impacted in place and attention was turned to the femur. Box chisel was used out laterally. Starter awl was placed down the canal starting with the 0 broach, I was able to broach up to a size 4 which was found to be rotationally and vertically stable. A 36 -2.5 was trialed as that was the plan on [employer] robotic plan and the patient had adequate judaism of leg lengths and was stable throughout range of motion. Hip was then dislocated. Trial implants were removed. The size 4 Accolade II stem was then impacted in place and a 36 -2.5 Biolox femoral head was impacted in place. Hip was then relocated. #5 Ethibond sutures used for closure of the short external rotators and capsule. 1 L pulse lavage irrigation with Ancef was irrigated through the hip along with 400 mL of Irrisept irrigation. Periarticular injection was completed. Topical tranexamic acid and vancomycin powder were applied. A #2 barbed suture was used for closure of IT band and gluteal fascia. 2-0 Vicryl was used subcutaneously and Prineo was used for skin closure. The checkpoints and Amitree robotic arrays were removed and nylon was used for closure of the small poke holes from the iliac crest. Sterile soft dressings were applied. The patient tolerated the procedure well and sent to PACU in stable condition. MMODAL /[id number]
== END | disposition home or self-care (01) ==
LOC: JD.SDS 06:33
PROVIDERS: ATTEND Orthopaedic Surgery
DX: M16.11 Unilateral primary osteoarthritis, right hip (principal); J45.909 Unspecified asthma, uncomplicated; K21.9 Gastro-esophageal reflux disease without esophagitis; I10 Essential (primary) hypertension; E03.9 Hypothyroidism, unspecified; M81.0 Age-related osteoporosis without current pathological fracture; I48.91 Unspecified atrial fibrillation; E11.9 Type 2 diabetes mellitus without complications; Z88.0 Allergy status to penicillin; Z88.8 Allergy status to other drugs, medicaments and biological substances; Z88.1 Allergy status to other antibiotic agents; Z79.01 Long term (current) use of anticoagulants; Z79.899 Other long term (current) drug therapy; Z90.49 Acquired absence of other specified parts of digestive tract; Z98.890 Other specified postprocedural states
CPT/HCPCS: 27130; 36415; 73501; 82947; 85610; 85730; 86850; 86900; 86901; 97110; 97116; 97161; A9270; C1713; C1776; J0171; J0690; J0697; J1885; J2250; J2270; J2370; J2405; J2704; J7120; 01214; J3370

== ENCOUNTER 2021-03-12 05:58 | Emergency (ER) | payer MEDICARE, OTHER ==
[2021-03-12] MEDS ORDERED: Lactated Ringers 500 ML IV ONE (06:36)
[2021-03-12] MEDS ORDERED: Ondansetron 4 MG/2 ML SDV IVPUSH ONE (06:36)
--- NOTE | 2021-03-12 06:41 | EDM.PDOC ---
<TiffanyEnio patel Ponce - Last Filed: 03/12/21 08:31> ED HPI GENERAL MEDICAL PROBLEM - General Chief Complaint: Gastrointestinal Problem Stated Complaint: POST HIP SURGERY Time Seen by Provider: 03/12/21 06:25 - Related Data Allergies Allergy/AdvReac Type Severity Reaction Status Date / Time penicillin Allergy Hives Verified 03/12/21 06:08 vancomycin Allergy Hives Verified 03/12/21 06:08 Home Meds: Home Meds Alendronate Sodium [Fosamax] 70 mg PO WEEKLY 02/15/19 [History] Levothyroxine [Synthroid] 25 mcg PO DAILY 02/15/19 [History] Apixaban [Eliquis] 5 mg PO BID #60 tablet 02/17/19 [Rx] Losartan Potassium 50 mg PO DAILY #0 02/17/19 [Rx] Metoprolol Tartrate [Lopressor] 25 mg PO Q12H #60 tablet 02/17/19 [Rx] Albuterol Sulfate [Albuterol Sulfate HFA] 1 - 2 puff INH BID PRN 03/05/21 [History] Calcium Carbonate [Calcium] 1,000 mg PO DAILY 03/05/21 [History] Cholecalciferol (Vitamin D3) [Vitamin D3] 4,000 unit PO DAILY 03/05/21 [History] Magnesium Oxide [Magnesium] 500 mg PO DAILY 03/05/21 [History] Omeprazole Magnesium [Prilosec Otc] 20 mg PO DAILY 03/05/21 [History] Triamcinolone Acetonide 1 dose TOP BID PRN 03/05/21 [History] glipiZIDE [Glipizide ER] 2.5 mg PO DAILY 03/05/21 [History] Hydrocodone/Acetaminophen [HYDROcodone-Acetaminophen 5-325 MG] 1 - 2 each PO Q6H PRN #30 tablet 03/06/21 [Rx] Ondansetron [Ondansetron ODT] 4 mg PO Q6H PRN #8 tab.rapdis 03/12/21 [Rx] Ondansetron [Zofran ODT] 4 mg PO Q6H PRN #8 tab.dis 03/12/21 [Rx] Course - Re-Assessments/Exams Free Text/Narrative Re-Assessment/Exam: 03/12/21 07:48 Assumed care at change of shift other than some mild transaminase elevation no significant changes on labs lipase is normal. At this time patient states she is doing a lot better nausea got and no abdominal pain. My physical exam of the patient at this time shows that she is alert and oriented and very cooperative. Heart shows regular rate rhythm. Lung sounds are clear bilaterally no wheezes crackles or rhonchi. Abdomen active bowel sounds no palpable discomfort no rigidity rebound or guarding. Discussed further evaluation at this point and I think we will try her on a clear liquid diet for the next 24 hours then slowly advance as tolerated. I will send a prescription to [email or web address] by [facility] is the only pharmacy open today and I will send her home with 1 pill. Departure - Departure Time of Disposition: 08:02 Disposition: Home, Self-Care 01 Clinical Impression: Nausea & vomiting - Discharge Information Prescriptions: Ondansetron [Ondansetron ODT] 4 mg PO Q6H PRN #8 tab.rapdis PRN Reason: Nausea/Vomiting Ondansetron [Zofran ODT] 4 mg PO Q6H PRN #8 tab.dis PRN Reason: Nausea/Vomiting Instructions: Nausea and Vomiting, Adult, [id number] Referrals: Kina Joshi, [employer] [Primary Care Provider] - Forms: ED Department Discharge Additional Instructions: Return to the emergency room with any questions problems or worsening symptoms. Clear liquid diet for the next 24 hours then slowly advance as tolerated. I have sent you home with a single Zofran tablet take it as needed before the pharmacy opens. I sent a prescription to [email or web address] by [facility] for Zofran. Use 1 every 6 hours for the rest of today and then as needed. Continue using your constipation prevention medication that you take twice a day as long as you are using the pain pills. <Steve Teran - Last Filed: 03/12/21 20:58> ED HPI GENERAL MEDICAL PROBLEM - General Source of Information: Reports: Patient History Limitations: Reports: No Limitations - History of Present Illness INITIAL COMMENTS - FREE TEXT/NARRATIVE: Patient is 36-year-old female status post right hip arthroplasty on March 06 presenting with a chief complaint of vomiting. She reports getting significantly constipated after the operation but did take a bowel prep regimen prescribed by her primary care physician on Saturday. She states that cleaned her out she been having soft stools ever since she is continue to take Colace. Patient reports yesterday started feeling nauseous experiencing some mild vomiting. Today, she states she was unable to keep anything down including yogurt that she had for breakfast. Patient denies any specific abdominal pain. No flank pain. No chest pain or shortness of breath. Nothing seems to make symptoms better or worse. No blood or bile in the vomit. 1 prior abdominal surgery with appendix removed many years ago. Past Medical History HEENT History: Reports: Cataract, Hard of Hearing, Impaired Vision, Other (See Below) Other HEENT History: right eye abrasion, impacted cerumen, right otitis externa, wears glasses, has hearing aids Cardiovascular History: Reports: Afib, Arrhythmia, Hypertension, Other (See Below) Other Cardiovascular History: SVT Respiratory History: Reports: Asthma, Bronchitis, Recurrent Other Respiratory History: pneumonia, cough, URI Gastrointestinal History: Reports: GERD Genitourinary History: Reports: UTI, Recurrent, Other (See Below) Other Genitourinary History: frequency OIL FIELD CASER History: Reports: Other (See Below) Other OIL FIELD CASER History: breast tenderness Musculoskeletal History: Reports: Arthritis, Osteoporosis Neurological History: Reports: Migraines Psychiatric History: Reports: None Endocrine/Metabolic History: Reports: Diabetes, Type II, Hypothyroidism Hematologic History: Reports: None Immunologic History: Reports: None Oncologic (Cancer) History: Reports: None Dermatologic History: Reports: Other (See Below) Other Dermatologic History: actinic keratosis, facial skin lesion, atopic dermatitis, rash - Infectious Disease History Infectious Disease History: Reports: None - Past Surgical History Head Surgeries/Procedures: Reports: None HEENT Surgical History: Reports: Cataract Surgery, Tonsillectomy Cardiovascular Surgical History: Reports: None Respiratory Surgical History: Reports: None GI Surgical History: Reports: Appendectomy Female Surgical History: Reports: None Endocrine Surgical History: Reports: None Neurological Surgical History: Reports: None Musculoskeletal Surgical History: Reports: Hip Replacement, Other (See Below) Other Musculoskeletal Surgeries/Procedures:: foot surgery, left leg surgery x 2 Oncologic Surgical History: Reports: None Dermatological Surgical History: Reports: None Social & Family History - Family History Family Medical History: No Pertinent Family History Oncologic: Reports: None - Tobacco Use Tobacco Use Status *Q: Never Tobacco User - Caffeine Use Caffeine Use: Reports: Coffee Caffeine Use Comment: 5 cups of coffee per day ED ROS GENERAL - Review of Systems Review Of Systems: See Below Free Text/Narrative/Comment: In addition to that documented in the HPI above, the additional ROS was obtained: Constitutional: Denies fevers or chills Eyes: Denies vision changes ENMT: Denies sore throat CV: Denies chest pain Resp: Denies SOB GI: Per HPI : Denies painful urination MSK: Denies recent trauma Skin: Denies new rashes Neuro: Denies new numbness or tingling or weakness Endocrine: Denies unexpected weight loss Heme: Denies bleeding disorders ED EXAM, GI/ABD - Physical Exam Exam: See Below Text/Narrative:: I have reviewed the triage vital signs Const: Well nourished, well developed, appears stated age Eyes: Pupils Equal and reactive to light bilaterally, no conjunctival injection HENT: No signs of trauma or swelling, Neck supple without meningismus CV: Regular Rate Rhythm, Warm, well-perfused extremities RESP: Unlabored respiratory effort GI: soft, non-tender, non-distended, no masses MSK: No gross deformities appreciated Skin: Warm, dry. No rashes Neuro: Alert, phlebotomy supervisor II-XII grossly intact. Sensation and motor function of extremities grossly intact. Psych: Appropriate mood and affect. Course - Vital Signs Last Recorded V/S: Last Vital Signs Temp 36.0 C L 03/12/21 06:04 Pulse 100 03/12/21 06:04 Resp 16 03/12/21 06:04 BP 155/81 H 03/12/21 06:04 Pulse Ox 100 03/12/21 06:04 - Orders/Labs/Meds Labs: Laboratory Tests 03/12/21 03/12/21 03/12/21 Range/Units 06:05 06:50 06:50 WBC 10.83 H (3.98-10.04) K/mm3 RBC 3.76 L (3.98-5.22) M/mm3 Hgb 11.3 D (11.2-15.7) gm/dl Hct 34.9 (34.1-44.9) % MCV 92.8 (79.4-94.8) fl MCH 30.1 (25.6-32.2) pg MCHC 32.4 (32.2-35.5) g/dl RDW Std Deviation 43.4 (36.4-46.3) fL Plt Count 219 (182-369) K/mm3 MPV 10.2 (9.4-12.3) fl Neut % (Auto) 77.3 H (34.0-71.1) % Lymph % (Auto) 12.2 L (19.3-51.7) % Vernon % (Auto) 8.9 (4.7-12.5) % Eos % (Auto) 0.5 L (0.7-5.8) Baso % (Auto) 0.5 (0.1-1.2) % Neut # (Auto) 8.39 H (1.56-6.13) K/mm3 Lymph # (Auto) 1.32 (1.18-3.74) K/mm3 Vernon # (Auto) 0.96 H (0.24-0.36) K/mm3 Eos # (Auto) 0.05 (0.04-0.36) K/mm3 Baso # (Auto) 0.05 (0.01-0.08) K/mm3 Sodium 135 L (136-145) mEq/L Potassium 3.8 (3.5-5.1) mEq/L Chloride 100 (98-107) mEq/L Carbon Dioxide 24 (21-32) mEq/L Anion Gap 14.8 (5-15) BUN 12 (7-18) mg/dL Creatinine 0.7 (0.55-1.02) mg/dL Est Cr Clr Drug Dosing 49.11 mL/min Estimated GFR (MDRD) > 60 (>60) mL/min BUN/Creatinine Ratio 17.1 (14-18) Glucose 152 H (70-99) mg/dL POC Glucose 141 H (70-99) mg/dL Calcium 8.5 (8.5-10.1) mg/dL Total Bilirubin 0.7 (0.2-1.0) mg/dL AST 51 H (15-37) U/L ALT 57 (14-59) U/L Alkaline Phosphatase 215 H (46-116) U/L Total Protein 6.5 (6.4-8.2) g/dl Albumin 2.4 L (3.4-5.0) g/dl Globulin 4.1 gm/dL Albumin/Globulin Ratio 0.6 L (1-2) Lipase 21 L (73-393) U/L SARS-CoV-2 RNA (SHAKIRA) (NEGATIVE) 10/17/21 Range/Units 06:50 WBC (3.98-10.04) K/mm3 RBC (3.98-5.22) M/mm3 Hgb (11.2-15.7) gm/dl Hct (34.1-44.9) % MCV (79.4-94.8) fl MCH (25.6-32.2) pg MCHC (32.2-35.5) g/dl RDW Std Deviation (36.4-46.3) fL Plt Count (182-369) K/mm3 MPV (9.4-12.3) fl Neut % (Auto) (34.0-71.1) % Lymph % (Auto) (19.3-51.7) % Vernon % (Auto) (4.7-12.5) % Eos % (Auto) (0.7-5.8) Baso % (Auto) (0.1-1.2) % Neut # (Auto) (1.56-6.13) K/mm3 Lymph # (Auto) (1.18-3.74) K/mm3 Vernon # (Auto) (0.24-0.36) K/mm3 Eos # (Auto) (0.04-0.36) K/mm3 Baso # (Auto) (0.01-0.08) K/mm3 Sodium (136-145) mEq/L Potassium (3.5-5.1) mEq/L Chloride (98-107) mEq/L Carbon Dioxide (21-32) mEq/L Anion Gap (5-15) BUN (7-18) mg/dL Creatinine (0.55-1.02) mg/dL Est Cr Clr Drug Dosing mL/min Estimated GFR (MDRD) (>60) mL/min BUN/Creatinine Ratio (14-18) Glucose (70-99) mg/dL POC Glucose (70-99) mg/dL Calcium (8.5-10.1) mg/dL Total Bilirubin (0.2-1.0) mg/dL AST (15-37) U/L ALT (14-59) U/L Alkaline Phosphatase (46-116) U/L Total Protein (6.4-8.2) g/dl Albumin (3.4-5.0) g/dl Globulin gm/dL Albumin/Globulin Ratio (1-2) Lipase (73-393) U/L SARS-CoV-2 RNA (SHAKIRA) Negative (NEGATIVE) Meds: Medications Discontinued Medications Generic Name Dose Route Start Last Admin Trade Name Freq PRN Reason Stop Dose Admin Lactated Ringer's 500 mls @ 1,000 mls/hr 03/12/21 06:36 03/12/21 06:50 Ringers, Lactated IV 03/12/21 07:05 1,000 mls/hr .BOLUS ONE Administration Ondansetron HCl 4 mg 03/12/21 06:36 03/12/21 06:52 Ondansetron 4 Mg/2 Ml Sdv IVPUSH 03/12/21 06:37 4 mg ONETIME ONE Administration Ondansetron HCl 4 mg 03/12/21 07:56 03/12/21 08:40 Ondansetron 4 Mg Tab.Dis PO 03/12/21 07:57 4 mg ONETIME ONE Administration Sepsis Event Note (ED) - Evaluation Sepsis Screening Result: No Definite Risk - Assessment/Plan Assessment:: Patient is 76-year-old female presenting to the emergency room with a complaint of nausea and vomiting. Patient nontoxic in appearance but demonstrated some mild vomiting in the emergency room. Her abdominal exam was benign. Laboratory studies were ordered to further evaluate etiology. Differential diagnosis considered for this patient included perforated peptic ulcer, pancreatitis, reaction to pain medication, gastroesophageal reflux. Based on evaluation, patient given Zofran and IV fluids. I have routine shift change, laboratory studies are pending and patient will be signed out to Dr. Love for reevaluation.
[2021-03-12] MEDS ORDERED: Ondansetron 4 MG Tab.DIS PO ONE (07:56)
== END 2021-03-12 08:40 | disposition home or self-care (01) ==
LOC: JD.ED 05:58
DX: R11.2 Nausea with vomiting, unspecified (principal); I48.91 Unspecified atrial fibrillation; E11.9 Type 2 diabetes mellitus without complications; I10 Essential (primary) hypertension; E03.9 Hypothyroidism, unspecified; K21.9 Gastro-esophageal reflux disease without esophagitis; Z88.0 Allergy status to penicillin; Z88.1 Allergy status to other antibiotic agents; Z79.01 Long term (current) use of anticoagulants; Z79.899 Other long term (current) drug therapy; Z96.641 Presence of right artificial hip joint
CPT/HCPCS: 36415; 80053; 82947; 83690; 85025; 96361; 96374; 99284; A9270; J2405; J7120; U0002

== ENCOUNTER 2022-07-19 11:32 | Emergency (ER) | payer MEDICARE, OTHER | END 2022-07-19 13:57 | disposition home or self-care (01) | LOC: JD.ED 11:32 | DX: S70.01XA Contusion of right hip, initial encounter (principal); G51.0 Bell's palsy; I48.91 Unspecified atrial fibrillation; I10 Essential (primary) hypertension; K21.9 Gastro-esophageal reflux disease without esophagitis; E11.9 Type 2 diabetes mellitus without complications; E03.9 Hypothyroidism, unspecified; J45.909 Unspecified asthma, uncomplicated; Z88.0 Allergy status to penicillin; Z88.1 Allergy status to other antibiotic agents; Z79.01 Long term (current) use of anticoagulants; Z79.899 Other long term (current) drug therapy; W00.0XXA Fall on same level due to ice and snow, initial encounter | CPT/HCPCS: 36415; 70450; 70450-26; 73502-26-RT; 73502-RT; 80053; 82947; 84484; 85025; 85379; 85610; 85730; 93005; 93010; 99284 ==

== ENCOUNTER 2022-08-22 15:42 | Observation (INO) | payer MEDICARE, OTHER ==
[2022-08-22] MEDS ORDERED: HYDROmorphone 0.5 MG/0.5 ML Syringe IM STA (17:45)
[2022-08-22] MEDS ORDERED: Metoprolol Tartrate 25 MG Tab PO ONE (18:01)
[2022-08-22] MEDS ORDERED: Acetaminophen 325 MG Tab PO PRN (19:37)
[2022-08-22] MEDS ORDERED: Morphine 2 MG/ML SYRINGE IVPUSH PRN (19:37)
[2022-08-22] MEDS ORDERED: HYPROMELLOSE EYEBOTH PRN (19:39)
[2022-08-22] MEDS ORDERED: DEXTRAN EYEBOTH PRN (19:39)
[2022-08-22] MEDS: Apixaban 5 MG Tab **PTOM PO SCH (22:00)
[2022-08-22] MEDS: Metoprolol Tartrate 25 MG Tab **PTOM PO SCH (22:00)
[2022-08-23] MEDS ORDERED: LEVOTHYROXINE 25 MCG PO SCH (09:00)
[2022-08-23] MEDS ORDERED: GLIPIZIDE 2.5 MG PO SCH (09:00)
[2022-08-23] MEDS ORDERED: Losartan 25 MG Tab **PTOM PO SCH (09:00)
[2022-08-23] MEDS: Apixaban 5 MG Tab **PTOM PO SCH (09:09)
[2022-08-23] MEDS: Metoprolol Tartrate 25 MG Tab **PTOM PO SCH (09:09)
[2022-08-23] MEDS ORDERED: Sodium Chloride 0.9% 1,000 ML IV ONE (09:41)
== END 2022-08-23 15:45 | disposition home or self-care (01) ==
LOC: JD.ED 15:42 → JD.MS 19:37
PROVIDERS: ADMIT Surgery; ATTEND Surgery
DX: S00.83XA Contusion of other part of head, initial encounter (principal); R00.0 Tachycardia, unspecified; I48.91 Unspecified atrial fibrillation; I10 Essential (primary) hypertension; K21.9 Gastro-esophageal reflux disease without esophagitis; M81.0 Age-related osteoporosis without current pathological fracture; G43.909 Migraine, unspecified, not intractable, without status migrainosus; E11.9 Type 2 diabetes mellitus without complications; E03.9 Hypothyroidism, unspecified; Z88.0 Allergy status to penicillin; Z88.1 Allergy status to other antibiotic agents; Z79.890 Hormone replacement therapy; Z79.899 Other long term (current) drug therapy; Z79.84 Long term (current) use of oral hypoglycemic drugs; W10.9XXA Fall (on) (from) unspecified stairs and steps, initial encounter
CPT/HCPCS: 36415; 70450; 72125; 80053; 81001; 85025; 94760; 96372; 99284; A9270; G0378; J1170; J7030; J3490

== ENCOUNTER 2023-04-14 09:50 | Inpatient (IN) | payer MEDICARE, OTHER ==
[2023-04-14] MEDS ORDERED: Sodium Chloride 0.9% 10 ML Syringe FLUSH PRN (10:46)
[2023-04-14] MEDS ORDERED: Morphine 2 MG/ML SYRINGE IVPUSH ONE (10:47)
[2023-04-14 11:14] LABS: BASOPHILS ABSOLUTE AUTO 0.1 K/mm3 (0.0-0.2); BASOPHILS PERCENT AUTO 0.6 % (0.0-1.0); EOSINOPHILS PERCENT AUTO 0.4 % (0.0-6.0); HEMATOCRIT 36.8 % (37.0-47.0); HEMOGLOBIN 12.5 gm/dl (12.0-16.0); IMMATURE GRAN ABSOLUTE AUTO 0.02 K/mm3 (0.00-0.05); IMMATURE GRAN PERCENT AUTO 0.2 % (0.0-0.4); LYMPHOCYTES ABSOLUTE AUTO 1.3 K/mm3 (1.0-4.8); LYMPHOCYTES PERCENT AUTO 12.6 % (24.0-44.0); MEAN CORPUSCULAR HEMOGLOBIN 30.7 pg (28.0-32.0); MEAN CORPUSCULAR VOLUME 90.4 fl (83.0-99.0); MEAN PLATELET VOLUME 10.4 fl (9.4-12.3); MONOCYTES ABSOLUTE AUTO 0.4 K/mm3 (0.0-0.8); MONOCYTES PERCENT AUTO 4.4 % (0.0-8.0); NEUTROPHILS ABSOLUTE AUTO 8.1 K/mm3 (1.8-7.7); NEUTROPHILS PERCENT AUTO 81.8 % (41.0-71.0); PLATELET COUNT,PLT 185 K/mm3 (150-400); RED BLOOD CELL COUNT 4.07 M/mm3 (4.10-5.30); WHITE BLOOD CELL COUNT,WBC 9.93 K/mm3 (3.9-11.3)
[2023-04-14 11:37] LABS: A/G RATIO 0.9 (1-2); ALANINE AMINOTRANSFERASE,ALT 38 U/L (14-59); ALBUMIN 3.2 g/dl (3.4-5.0); ALKALINE PHOSPHATASE 145 U/L (46-116); ANION GAP 14.8 (5-15); ASPARTATE AMNIOTRANSFERASE,AST 49 U/L (15-37); BILIRUBIN TOTAL 0.4 mg/dL (0.2-1.0); BLOOD UREA NITROGEN,BUN 14 mg/dL (7-18); BUN/CREATININE RATIO 17.5 (14-18); CALCIUM 8.6 mg/dL (8.5-10.1); CARBON DIOXIDE,CO2 24 mEq/L (21-32); CHLORIDE,CL 100 mEq/L (98-107); CREATININE 0.8 mg/dL (0.55-1.02); ESTIMATED GFR 75 mL/min (>60); GLUCOSE RANDOM 191 mg/dL (70-99); PROTEIN TOTAL,TP 6.9 g/dl (6.4-8.2); SODIUM,NA 135 mEq/L (136-145)
[2023-04-14 11:38] LABS: POTASSIUM,K 3.8 mEq/L (3.5-5.1)
[2023-04-14] MEDS ORDERED: Prochlorperazine 5 MG in Sodium Chloride 0.9% 50 ML IV ONE (11:46)
[2023-04-14] MEDS ORDERED: Temazepam 7.5 MG Cap PO PRN (11:53)
[2023-04-14] MEDS ORDERED: Docusate Sodium 100 MG Cap PO PRN (11:53)
[2023-04-14] MEDS ORDERED: Naloxone 0.4 MG/ML SDV IVPUSH PRN (11:53)
[2023-04-14] MEDS ORDERED: Acetaminophen 325 MG Tab PO PRN (11:53)
[2023-04-14 12:27] LABS: APPEARANCE,URINE CLEAR (Clear); BILIRUBIN,URINE NEGATIVE (Negative); COLOR,URINE LIGHT YELLOW (Yellow); GLUCOSE,URINE NEGATIVE (Negative); KETONES,URINE NEGATIVE (Negative); LEUKOCYTE ESTERASE,URINE NEGATIVE (Negative); NITRITE,URINE NEGATIVE (Negative); OCCULT BLOOD,URINE NEGATIVE (Negative); PROTEIN,URINE NEGATIVE (Negative); UROBILINOGEN,URINE 0.2 (0.2-1.0)
[2023-04-14] MEDS: Morphine 2 MG/ML SYRINGE IVPUSH PRN (12:36)
[2023-04-14] MEDS ORDERED: Carboxymethylcellulose Sodium 1% Ophth Gel 15 ML Bottle EYEBOTH PRN (13:52)
[2023-04-14] MEDS ORDERED: traMADol 50 MG Tab PO PRN (13:52)
[2023-04-14] MEDS: Ondansetron 4 MG Tab.DIS PO PRN (14:43)
[2023-04-14] MEDS: Insulin Regular, Human 100 Units/ML 3 ML Vial SUBCUT SCH ×2 (15:06→18:51)
[2023-04-14] MEDS: Metoprolol Tartrate 25 MG Tab PO SCH (15:07)
[2023-04-14] MEDS: oxyCODONE 5 MG Tab PO PRN (16:52)
[2023-04-14] MEDS: Sodium Chloride 0.9% 1,000 ML IV SCH (17:20)
[2023-04-15] MEDS: Metoprolol Tartrate 25 MG Tab PO SCH ×3 (01:15→20:34)
[2023-04-15 06:01] LABS: BASOPHILS PERCENT AUTO 0.2 % (0.0-1.0); EOSINOPHILS PERCENT AUTO 0.2 % (0.0-6.0); HEMATOCRIT 25.9 % (37.0-47.0); IMMATURE GRAN ABSOLUTE AUTO 0.06 K/mm3 (0.00-0.05); IMMATURE GRAN PERCENT AUTO 0.5 % (0.0-0.4); LYMPHOCYTES ABSOLUTE AUTO 1.9 K/mm3 (1.0-4.8); LYMPHOCYTES PERCENT AUTO 14.5 % (24.0-44.0); MEAN CORPUSCULAR HEMOGLOBIN 31.6 pg (28.0-32.0); MEAN CORPUSCULAR HGB CONC 34.4 g/dl (32.0-36.0); MEAN CORPUSCULAR VOLUME 91.8 fl (83.0-99.0); MEAN PLATELET VOLUME 10.9 fl (9.4-12.3); MONOCYTES ABSOLUTE AUTO 1.2 K/mm3 (0.0-0.8); NEUTROPHILS ABSOLUTE AUTO 10.1 K/mm3 (1.8-7.7); NEUTROPHILS PERCENT AUTO 75.6 % (41.0-71.0); PLATELET COUNT,PLT 172 K/mm3 (150-400); RED BLOOD CELL COUNT 2.82 M/mm3 (4.10-5.30); WHITE BLOOD CELL COUNT,WBC 13.31 K/mm3 (3.9-11.3)
[2023-04-15 06:04] LABS: HEMOGLOBIN 8.9 gm/dl (12.0-16.0)
[2023-04-15 06:20] LABS: A/G RATIO 0.8 (1-2); ALBUMIN 2.5 g/dl (3.4-5.0); BILIRUBIN TOTAL 0.4 mg/dL (0.2-1.0); BUN/CREATININE RATIO 22.9 (14-18); CREATININE 0.7 mg/dL (0.55-1.02); EST CRCL DRUG DOSING (CG) 47.58 mL/min; PROTEIN TOTAL,TP 5.5 g/dl (6.4-8.2)
[2023-04-15] MEDS: Sodium Chloride 0.9% 1,000 ML IV SCH (06:24)
[2023-04-15] MEDS: Morphine 2 MG/ML SYRINGE IVPUSH PRN (07:24)
[2023-04-15] MEDS: Ondansetron 4 MG Tab.DIS PO PRN (07:24)
[2023-04-15] MEDS ORDERED: Polyethylene Glycol 3350 Powder 17 GM Packet PO PRN (08:00)
[2023-04-15] MEDS ORDERED: Albuterol 6.7 GM Inhaler INH PRN (08:20)
[2023-04-15] MEDS ORDERED: Losartan 25 MG Tab PO SCH (09:00)
[2023-04-15] MEDS ORDERED: Levothyroxine 50 MCG Tab PO SCH (09:00)
[2023-04-15] MEDS ORDERED: glipiZIDE 2.5 MG Tab.ER PO SCH (09:00)
[2023-04-15] MEDS: Heparin Sodium 5,000 Units/ML Vial SUBCUT SCH ×2 (09:11→16:56)
[2023-04-15] MEDS: Insulin Regular, Human 100 Units/ML 3 ML Vial SUBCUT SCH ×3 (09:11→19:37)
[2023-04-15] MEDS ORDERED: Morphine 2 MG/ML SYRINGE IVPUSH PRN (11:12)
[2023-04-15] MEDS ORDERED: Cyclobenzaprine 10 MG Tab PO PRN (12:10)
[2023-04-15] MEDS ORDERED: Ondansetron 4 MG/2 ML SDV IVPUSH PRN (12:22)
[2023-04-15] MEDS: Sennosides/Docusate Sodium 50-8.6 MG Tab PO SCH ×2 (13:09→20:31)
[2023-04-15] MEDS: oxyCODONE 5 MG Tab PO PRN ×2 (13:10→23:43)
[2023-04-16] MEDS: oxyCODONE 5 MG Tab PO PRN ×2 (07:21→20:03)
[2023-04-16] MEDS: Metoprolol Tartrate 25 MG Tab PO SCH ×3 (07:22→20:04)
[2023-04-16] MEDS ORDERED: Bupivacaine 0.25% 10 ML SDV ONE (07:31)
[2023-04-16] MEDS ORDERED: fentaNYL 100 MCG/2 ML SDV ONE (10:29)
[2023-04-16] MEDS ORDERED: Midazolam 1 MG/ML 2 ML SDV ONE (10:30)
[2023-04-16] MEDS ORDERED: Etomidate 2 MG/ML 20 ML SDV IVPUSH ONE (10:30)
[2023-04-16] MEDS ORDERED: ceFAZolin 2 GM Vial ONE (10:58)
[2023-04-16] MEDS ORDERED: Dexamethasone 4 MG/ML 5 ML MDV ONE (11:24)
[2023-04-16] MEDS ORDERED: fentaNYL 100 MCG/2 ML SDV IVPUSH PRN (13:20)
[2023-04-16] MEDS ORDERED: HYDROmorphone 0.5 MG/0.5 ML Syringe IVPUSH PRN (13:20)
[2023-04-16] MEDS: Insulin Regular, Human 100 Units/ML 3 ML Vial SUBCUT SCH ×2 (14:48→18:44)
[2023-04-16] MEDS: Polyethylene Glycol 3350 Powder 17 GM Packet PO SCH (14:56)
[2023-04-16] MEDS: Sennosides/Docusate Sodium 50-8.6 MG Tab PO SCH ×2 (14:56→20:03)
[2023-04-16] MEDS: Levothyroxine 25 MCG Tab PO SCH (14:56)
[2023-04-17] MEDS: Heparin Sodium 5,000 Units/ML Vial SUBCUT SCH (00:43)
[2023-04-17 05:43] LABS: A/G RATIO 0.7 (1-2); ALBUMIN 2.4 g/dl (3.4-5.0); ANION GAP 12.5 (5-15); BILIRUBIN TOTAL 0.4 mg/dL (0.2-1.0); BUN/CREATININE RATIO 24.3 (14-18); CALCIUM 8.3 mg/dL (8.5-10.1); CREATININE 0.7 mg/dL (0.55-1.02); EST CRCL DRUG DOSING (CG) 47.58 mL/min; MAGNESIUM 1.8 mg/dL (1.8-2.4); POTASSIUM,K 4.5 mEq/L (3.5-5.1); PROTEIN TOTAL,TP 5.9 g/dl (6.4-8.2)
[2023-04-17 06:03] LABS: BASOPHILS PERCENT AUTO 0.1 % (0.0-1.0); HEMATOCRIT 22.2 % (37.0-47.0); IMMATURE GRAN ABSOLUTE AUTO 0.14 K/mm3 (0.00-0.05); IMMATURE GRAN PERCENT AUTO 0.8 % (0.0-0.4); LYMPHOCYTES ABSOLUTE AUTO 1.5 K/mm3 (1.0-4.8); LYMPHOCYTES PERCENT AUTO 8.9 % (24.0-44.0); MEAN CORPUSCULAR HEMOGLOBIN 30.8 pg (28.0-32.0); MEAN CORPUSCULAR HGB CONC 33.3 g/dl (32.0-36.0); MEAN CORPUSCULAR VOLUME 92.5 fl (83.0-99.0); MONOCYTES ABSOLUTE AUTO 1.5 K/mm3 (0.0-0.8); MONOCYTES PERCENT AUTO 8.9 % (0.0-8.0); NEUTROPHILS ABSOLUTE AUTO 13.7 K/mm3 (1.8-7.7); NEUTROPHILS PERCENT AUTO 81.3 % (41.0-71.0); PLATELET COUNT,PLT 157 K/mm3 (150-400)
[2023-04-17 06:24] LABS: HEMOGLOBIN 7.4 gm/dl (12.0-16.0)
[2023-04-17] MEDS ORDERED: Apixaban 5 MG Tab PO SCH (09:00)
[2023-04-17] MEDS: Insulin Regular, Human 100 Units/ML 3 ML Vial SUBCUT SCH ×2 (09:05→13:50)
[2023-04-17] MEDS ORDERED: Sodium Chloride 0.9% 250 ML ONE (09:13)
[2023-04-17] MEDS: Polyethylene Glycol 3350 Powder 17 GM Packet PO SCH (09:18)
[2023-04-17] MEDS: Levothyroxine 25 MCG Tab PO SCH (09:19)
[2023-04-17] MEDS: Metoprolol Tartrate 25 MG Tab PO SCH (09:19)
[2023-04-17] MEDS: Sennosides/Docusate Sodium 50-8.6 MG Tab PO SCH (09:19)
[2023-04-17] MEDS: oxyCODONE 5 MG Tab PO PRN (13:50)
== END 2023-04-17 15:29 | disposition home health service (06) | DRG 481 ==
LOC: JD.ED 09:50 → JD.MS 11:53
PROVIDERS: ADMIT Internal Medicine; ATTEND Internal Medicine
PROC: 0QS734Z Reposition Left Upper Femur with Internal Fixation Device, Percutaneous Approach (ICD-10-PCS; principal; 2023-04-16 11:45)
DX: S72.142A Displaced intertrochanteric fracture of left femur, initial encounter for closed fracture (principal); N39.0 Urinary tract infection, site not specified; I48.91 Unspecified atrial fibrillation; E11.9 Type 2 diabetes mellitus without complications; E78.5 Hyperlipidemia, unspecified; I10 Essential (primary) hypertension; J45.20 Mild intermittent asthma, uncomplicated; E03.9 Hypothyroidism, unspecified; M15.9 Polyosteoarthritis, unspecified; M81.0 Age-related osteoporosis without current pathological fracture; G43.909 Migraine, unspecified, not intractable, without status migrainosus; Z96.649 Presence of unspecified artificial hip joint; W18.30XA Fall on same level, unspecified, initial encounter; D64.9 Anemia, unspecified; Z96.641 Presence of right artificial hip joint; E78.00 Pure hypercholesterolemia, unspecified; H91.90 Unspecified hearing loss, unspecified ear; K21.9 Gastro-esophageal reflux disease without esophagitis; K59.03 Drug induced constipation; Z79.01 Long term (current) use of anticoagulants; Z79.890 Hormone replacement therapy; Y92.89 Other specified places as the place of occurrence of the external cause; Z88.0 Allergy status to penicillin; Z79.899 Other long term (current) drug therapy; Z88.1 Allergy status to other antibiotic agents; Z87.01 Personal history of pneumonia (recurrent); Z90.89 Acquired absence of other organs; Z86.16 Personal history of COVID-19; W00.0XXA Fall on same level due to ice and snow, initial encounter; Y93.K1 Activity, walking an animal
CPT/HCPCS: 36415; 51702; 73502; 80053; 81003; 85025; 93005; 96374; 99285; J2270; J3490; 01230; 36430; 51701; 51798; 73552-26-LT; 73552-LT; 76000; 76000-26; 82947; 83735; 86850; 86900; 86901; 86922; 87641; 93010; 94760; 97110-GP; 97116-GP; 97162-GP; 99100; 99222; 99232; 99239; A9270-GY; C1713; C1758; C1776; J0690; J0780; J1100; J1644; J1815-GY; J2250; J2405; J3010; J7030; J7050; P9016

== ENCOUNTER 2023-08-13 07:08 | Day surgery (SDC) | payer OTHER, MEDICARE ==
[~2023-08-13 07:08] MED LIST changes: -Acetaminophen/HYDROcodone 325-5 MG Tab PO STA; -HYDROmorphone 0.5 MG/0.5 ML Syringe IVPUSH PRN; -Lactated Ringers 1,000 ML IV SCH; -Lactated Ringers 1,000 ML ONE; -Lidocaine 1%/Sod Bicarbonate in NS 8.4% 1 ML Syringe IDERM PRN; -Midazolam 1 MG/ML 2 ML SDV ONE; -Morphine 8 MG, EPINEPHrine 0.3 MG, Cefuroxime 750 MG, Ketorolac 30 MG, Sodium Chloride ... PRN; -Ondansetron 4 MG/2 ML SDV IVPUSH PRN; -Propofol 200 MG/20 ML SDV ONE; -Vancomycin 1 GM SDV ONE; -ceFAZolin 1 GM Vial ONE; -ePHEDrine 50 MG/ML SDV ONE; -fentaNYL 100 MCG/2 ML SDV IVPUSH PRN
[2023-08-13] MEDS ORDERED: Lidocaine 1% 4 ML ONE (07:16)
[2023-08-13] MEDS ORDERED: Midazolam 1 MG/ML 2 ML SDV ONE (07:16)
[2023-08-13] MEDS ORDERED: Propofol 200 MG/20 ML SDV ONE (07:16)
[2023-08-13] MEDS ORDERED: fentaNYL 100 MCG/2 ML SDV ONE (07:16)
[2023-08-13] MEDS: Lactated Ringers 1,000 ML IV SCH (07:45)
[2023-08-13] MEDS ORDERED: Sodium Chloride 0.9% 10 ML Syringe FLUSH SCH (09:00)
[2023-08-13] MEDS ORDERED: ePHEDrine 50 MG/ML SDV ONE (09:11)
== END 2023-08-13 10:40 | disposition home or self-care (01) ==
LOC: JD.SDS 07:08
PROVIDERS: ATTEND Student in an Organized Health Care Education/Training Program
DX: K64.8 Other hemorrhoids (principal); K57.30 Diverticulosis of large intestine without perforation or abscess without bleeding; K59.00 Constipation, unspecified; K64.4 Residual hemorrhoidal skin tags; I10 Essential (primary) hypertension; I48.91 Unspecified atrial fibrillation; J45.909 Unspecified asthma, uncomplicated; H61.20 Impacted cerumen, unspecified ear; K21.9 Gastro-esophageal reflux disease without esophagitis; E03.9 Hypothyroidism, unspecified; M16.9 Osteoarthritis of hip, unspecified; E11.9 Type 2 diabetes mellitus without complications; L98.9 Disorder of the skin and subcutaneous tissue, unspecified; G47.00 Insomnia, unspecified; Z88.0 Allergy status to penicillin; Z79.899 Other long term (current) drug therapy
CPT/HCPCS: 45378; 82947; J2250; J2704; J3010; J7120; 00811; 99100; J3490

== ENCOUNTER 2025-01-31 18:06 | Emergency (ER) | payer MEDICARE, OTHER ==
[2025-01-31] MEDS: Acetaminophen/HYDROcodone 325-5 MG Tab PO ONE (19:33)
== END 2025-01-31 21:00 | disposition home or self-care (01) ==
LOC: JD.ED 18:06
DX: S61.215A Laceration without foreign body of left ring finger without damage to nail, initial encounter (principal); S80.212A Abrasion, left knee, initial encounter; S80.211A Abrasion, right knee, initial encounter; I48.91 Unspecified atrial fibrillation; E78.00 Pure hypercholesterolemia, unspecified; I10 Essential (primary) hypertension; K21.9 Gastro-esophageal reflux disease without esophagitis; E11.9 Type 2 diabetes mellitus without complications; E03.9 Hypothyroidism, unspecified; Z86.16 Personal history of COVID-19; Z88.0 Allergy status to penicillin; Z88.1 Allergy status to other antibiotic agents; Z79.890 Hormone replacement therapy; Z79.01 Long term (current) use of anticoagulants; Z79.84 Long term (current) use of oral hypoglycemic drugs; Z79.899 Other long term (current) drug therapy; W01.0XXA Fall on same level from slipping, tripping and stumbling without subsequent striking against object, initial encounter; Y93.89 Activity, other specified
CPT/HCPCS: 12001; 73140-26-F3; 73140-F3; 99283; A9270-GY; J2003